=== PATIENT | male | born 1950 | race Caucasian/White ===

== ENCOUNTER 2016-11-03 10:08 | Outpatient (CLI) | payer MEDICARE, MEDICAID ==
[2016-11-03] MEDS ORDERED: XYLOCAINE TOPICAL 4% TP ONE ×2 (10:27→10:51)
[2016-11-03] MEDS ORDERED: SILVER NITRATE TP ONE ×2 (12:17→12:31)
== END 2016-11-03 10:09 | disposition home or self-care (01) ==
LOC: WOUND 10:08
PROVIDERS: ATTEND Podiatrist
DX: E11.621 Type 2 diabetes mellitus with foot ulcer (principal); L97.512 Non-pressure chronic ulcer of other part of right foot with fat layer exposed; E11.40 Type 2 diabetes mellitus with diabetic neuropathy, unspecified; E11.22 Type 2 diabetes mellitus with diabetic chronic kidney disease; I12.0 Hypertensive chronic kidney disease with stage 5 chronic kidney disease or end stage renal disease; N18.6 End stage renal disease; J44.9 Chronic obstructive pulmonary disease, unspecified; L84 Corns and callosities; I25.10 Atherosclerotic heart disease of native coronary artery without angina pectoris; H91.90 Unspecified hearing loss, unspecified ear; Z87.891 Personal history of nicotine dependence; Z79.4 Long term (current) use of insulin
CPT/HCPCS: 11042; 11055; G0463

== ENCOUNTER 2016-11-10 09:53 | Outpatient (CLI) | payer MEDICARE, MEDICAID ==
[2016-11-10] MEDS ORDERED: XYLOCAINE TOPICAL 4% TP ONE ×2 (10:12→10:18)
[2016-11-10] MEDS ORDERED: SODIUM CHLORIDE FLUSH SYRINGE 10 ML IV ONE (14:55)
== END 2016-11-10 09:54 | disposition home or self-care (01) ==
LOC: WOUND 09:53
PROVIDERS: ATTEND Podiatrist
DX: E11.621 Type 2 diabetes mellitus with foot ulcer (principal); L97.512 Non-pressure chronic ulcer of other part of right foot with fat layer exposed; E11.40 Type 2 diabetes mellitus with diabetic neuropathy, unspecified; L84 Corns and callosities; E11.22 Type 2 diabetes mellitus with diabetic chronic kidney disease; I12.0 Hypertensive chronic kidney disease with stage 5 chronic kidney disease or end stage renal disease; N18.6 End stage renal disease; E87.5 Hyperkalemia; J44.9 Chronic obstructive pulmonary disease, unspecified; I25.10 Atherosclerotic heart disease of native coronary artery without angina pectoris; Z98.62 Peripheral vascular angioplasty status

== ENCOUNTER 2016-12-09 04:38 | Emergency (ER) | payer MEDICARE, MEDICAID ==
[2016-12-09 05:00] VITALS: BP 161/83
[2016-12-09 05:35] LABS: Basophils % (Auto) 1.3 % (0.0-1.8); Eosinophils % (Auto) 2.6 % (0.0-4.3); Hematocrit 34.9 % (35.5-45.6); Hemoglobin 11.8 gm/dl (11.8-15.2); Mean Corpuscular HGB Conc 34 % (32-34); Mean Corpuscular Hemoglobin 33 pg (28-32); Mean Corpuscular Volume 98 fl (84-94); Platelet Count 164 K/mm3 (140-440); Red Blood Count 3.57 M/mm3 (3.65-5.03); Red Cell Distribution Width 16.4 % (13.2-15.2); White Blood Count 11.8 K/mm3 (4.5-11.0)
[2016-12-09 05:50] LABS: Calcium 9.6 mg/dL (8.4-10.2)
[2016-12-09 06:05] LABS: Potassium 6.4 mmol/L (3.6-5.0)
--- NOTE | 2016-12-09 09:39 | XRay Report ---
Chest 2 views: Compared to 10/25/16. History: Fever and cough. Findings: Normal cardiomediastinal silhouette. Trachea is midline. No consolidation, pneumothorax or pleural effusion. Impression: No acute cardiopulmonary findings.
== END 2016-12-09 07:00 | disposition left against medical advice (07) ==
LOC: ED 04:38
DX: R07.9 Chest pain, unspecified (principal); Z53.21 Procedure and treatment not carried out due to patient leaving prior to being seen by health care provider
CPT/HCPCS: 36415; 71020; 80048; 80061; 84484; 85025; 93005; 93010

== ENCOUNTER 2017-05-07 07:59 | Outpatient (CLI) | payer MEDICARE ==
[2017-05-07] MEDS ORDERED: XYLOCAINE TOPICAL 4% TP ONE (08:24)
[2017-05-07] MEDS ORDERED: SILVER NITRATE TP ONE ×2 (10:04→10:06)
== END 2017-05-07 08:00 | disposition home or self-care (01) ==
LOC: WOUND 07:59
PROVIDERS: ATTEND Internal Medicine
DX: E11.621 Type 2 diabetes mellitus with foot ulcer (principal); L97.512 Non-pressure chronic ulcer of other part of right foot with fat layer exposed; E11.40 Type 2 diabetes mellitus with diabetic neuropathy, unspecified; E11.22 Type 2 diabetes mellitus with diabetic chronic kidney disease; I12.0 Hypertensive chronic kidney disease with stage 5 chronic kidney disease or end stage renal disease; N18.6 End stage renal disease; J44.9 Chronic obstructive pulmonary disease, unspecified; I25.10 Atherosclerotic heart disease of native coronary artery without angina pectoris; Z87.891 Personal history of nicotine dependence

== ENCOUNTER 2017-05-07 10:43 | Outpatient (CLI) | payer MEDICARE ==
--- NOTE | 2017-05-09 11:25 | Vascular Lab Report ---
LOWER EXTREMITY ARTERIAL DUPLEX: REASON FOR EXAM: Resting ischemia. COMMENTS ON THE RIGHT: Triphasic waveforms are seen proximally. Monophasic waveforms are seen distally. Evidence of tibial artery occlusive disease is identified. Scattered plaque is seen throughout. Findings are consistent with abnormal perfusion. Findings cannot concern the presence of resting ischemia. Wound healing may be affected by the low distal velocities. COMMENTS ON THE LEFT: Biphasic waveforms are seen proximally. Biphasic waveforms are seen distally. No significant velocity gradients are identified. Scattered plaque is seen throughout. Findings are consistent with abnormal perfusion. Findings are not consistent with resting ischemia. The ability to heal the wound may be compromised. IMPRESSION: RIGHT: Significant arterial occlusive disease consistent with inability to the wound. Rest pain cannot be confirmed by the study. LEFT:Arterial occlusive disease which may hinder distal wound healing.
== END 2017-05-07 10:44 | disposition home or self-care (01) ==
LOC: VAS 10:43
PROVIDERS: ATTEND Internal Medicine
DX: I77.1 Stricture of artery (principal)
CPT/HCPCS: 93925

== ENCOUNTER 2017-05-25 08:22 | Outpatient (CLI) | payer MEDICARE ==
[2017-05-25] MEDS ORDERED: XYLOCAINE TOPICAL 4% TP ONE (08:50)
== END 2017-05-25 08:23 | disposition home or self-care (01) ==
LOC: WOUND 08:22
PROVIDERS: ATTEND Podiatrist
DX: E11.621 Type 2 diabetes mellitus with foot ulcer (principal); L97.512 Non-pressure chronic ulcer of other part of right foot with fat layer exposed; L97.521 Non-pressure chronic ulcer of other part of left foot limited to breakdown of skin; E11.40 Type 2 diabetes mellitus with diabetic neuropathy, unspecified; E11.22 Type 2 diabetes mellitus with diabetic chronic kidney disease; I12.0 Hypertensive chronic kidney disease with stage 5 chronic kidney disease or end stage renal disease; N18.6 End stage renal disease; J44.9 Chronic obstructive pulmonary disease, unspecified; I25.10 Atherosclerotic heart disease of native coronary artery without angina pectoris; Z87.891 Personal history of nicotine dependence
CPT/HCPCS: 82962; 97597

== ENCOUNTER 2017-06-01 08:02 | Outpatient (CLI) | payer MEDICARE ==
[2017-06-01] MEDS ORDERED: XYLOCAINE TOPICAL 4% TP ONE ×2 (08:31→08:39)
== END 2017-06-01 08:03 | disposition home or self-care (01) ==
LOC: WOUND 08:02
PROVIDERS: ATTEND Podiatrist
DX: E11.621 Type 2 diabetes mellitus with foot ulcer (principal); L97.512 Non-pressure chronic ulcer of other part of right foot with fat layer exposed; L97.521 Non-pressure chronic ulcer of other part of left foot limited to breakdown of skin; E11.40 Type 2 diabetes mellitus with diabetic neuropathy, unspecified; E11.22 Type 2 diabetes mellitus with diabetic chronic kidney disease; I12.0 Hypertensive chronic kidney disease with stage 5 chronic kidney disease or end stage renal disease; N18.6 End stage renal disease; J44.9 Chronic obstructive pulmonary disease, unspecified; I25.10 Atherosclerotic heart disease of native coronary artery without angina pectoris; Z87.891 Personal history of nicotine dependence

== ENCOUNTER 2017-06-08 08:09 | Outpatient (CLI) | payer MEDICARE ==
[2017-06-08] MEDS ORDERED: XYLOCAINE TOPICAL 4% TP ONE (08:29)
== END 2017-06-08 08:10 | disposition home or self-care (01) ==
LOC: WOUND 08:09
PROVIDERS: ATTEND Podiatrist
DX: E11.621 Type 2 diabetes mellitus with foot ulcer (principal); L97.512 Non-pressure chronic ulcer of other part of right foot with fat layer exposed; E11.40 Type 2 diabetes mellitus with diabetic neuropathy, unspecified; E11.22 Type 2 diabetes mellitus with diabetic chronic kidney disease; I12.0 Hypertensive chronic kidney disease with stage 5 chronic kidney disease or end stage renal disease; N18.6 End stage renal disease; J44.9 Chronic obstructive pulmonary disease, unspecified; I25.10 Atherosclerotic heart disease of native coronary artery without angina pectoris; L84 Corns and callosities; E23.2 Diabetes insipidus; Z87.891 Personal history of nicotine dependence
CPT/HCPCS: 11055; 97597

== ENCOUNTER 2017-06-29 10:44 | Outpatient (CLI) | payer MEDICARE ==
[2017-06-29] MEDS ORDERED: XYLOCAINE TOPICAL 4% TP ONE ×2 (11:32→14:34)
== END 2017-06-29 10:45 | disposition home or self-care (01) ==
LOC: WOUND 10:44
PROVIDERS: ATTEND Surgery
DX: E11.621 Type 2 diabetes mellitus with foot ulcer (principal); L97.511 Non-pressure chronic ulcer of other part of right foot limited to breakdown of skin; L84 Corns and callosities; E11.22 Type 2 diabetes mellitus with diabetic chronic kidney disease; I12.0 Hypertensive chronic kidney disease with stage 5 chronic kidney disease or end stage renal disease; N18.6 End stage renal disease; E23.2 Diabetes insipidus; J44.9 Chronic obstructive pulmonary disease, unspecified; I25.10 Atherosclerotic heart disease of native coronary artery without angina pectoris; E87.70 Fluid overload, unspecified; Z87.891 Personal history of nicotine dependence

== ENCOUNTER 2017-07-13 09:49 | Outpatient (CLI) | payer MEDICARE ==
[2017-07-13] MEDS ORDERED: XYLOCAINE TOPICAL 4% TP ONE (10:20)
[2017-07-13] MEDS ORDERED: SILVER NITRATE TP ONE ×2 (10:50→10:59)
== END 2017-07-13 09:50 | disposition home or self-care (01) ==
LOC: WOUND 09:49
PROVIDERS: ATTEND Surgery
DX: E11.621 Type 2 diabetes mellitus with foot ulcer (principal); L97.512 Non-pressure chronic ulcer of other part of right foot with fat layer exposed; E11.40 Type 2 diabetes mellitus with diabetic neuropathy, unspecified; E11.22 Type 2 diabetes mellitus with diabetic chronic kidney disease; L84 Corns and callosities; I12.0 Hypertensive chronic kidney disease with stage 5 chronic kidney disease or end stage renal disease; N18.6 End stage renal disease; J44.9 Chronic obstructive pulmonary disease, unspecified; I25.10 Atherosclerotic heart disease of native coronary artery without angina pectoris; Z87.891 Personal history of nicotine dependence

== ENCOUNTER 2017-07-20 09:01 | Outpatient (CLI) | payer MEDICARE ==
[2017-07-20] MEDS ORDERED: XYLOCAINE TOPICAL 4% TP ONE (09:31)
== END 2017-07-20 09:02 | disposition home or self-care (01) ==
LOC: WOUND 09:01
PROVIDERS: ATTEND Surgery
DX: E11.621 Type 2 diabetes mellitus with foot ulcer (principal); L97.512 Non-pressure chronic ulcer of other part of right foot with fat layer exposed; E11.40 Type 2 diabetes mellitus with diabetic neuropathy, unspecified; E11.22 Type 2 diabetes mellitus with diabetic chronic kidney disease; L84 Corns and callosities; I12.0 Hypertensive chronic kidney disease with stage 5 chronic kidney disease or end stage renal disease; N18.6 End stage renal disease; J44.9 Chronic obstructive pulmonary disease, unspecified; I25.10 Atherosclerotic heart disease of native coronary artery without angina pectoris; Z87.891 Personal history of nicotine dependence
CPT/HCPCS: 99214; G0463

== ENCOUNTER 2017-08-10 09:09 | Outpatient (CLI) | payer MEDICARE ==
[2017-08-10] MEDS ORDERED: XYLOCAINE TOPICAL 4% TP ONE ×2 (09:12→09:45)
[2017-08-10] MEDS ORDERED: AD OINTMENT TP PRN (09:53)
[2017-08-10] MEDS ORDERED: AD OINTMENT TP ONE (09:53)
== END 2017-08-10 09:10 | disposition home or self-care (01) ==
LOC: WOUND 09:09
PROVIDERS: ATTEND Surgery
DX: E11.621 Type 2 diabetes mellitus with foot ulcer (principal); L97.512 Non-pressure chronic ulcer of other part of right foot with fat layer exposed; E11.40 Type 2 diabetes mellitus with diabetic neuropathy, unspecified; E11.22 Type 2 diabetes mellitus with diabetic chronic kidney disease; L84 Corns and callosities; I12.0 Hypertensive chronic kidney disease with stage 5 chronic kidney disease or end stage renal disease; N18.6 End stage renal disease; J44.9 Chronic obstructive pulmonary disease, unspecified; I25.10 Atherosclerotic heart disease of native coronary artery without angina pectoris; Z87.891 Personal history of nicotine dependence
CPT/HCPCS: 97597; A6250

== ENCOUNTER 2017-10-04 07:47 | Outpatient (CLI) | payer MEDICARE ==
[2017-10-04] MEDS ORDERED: XYLOCAINE TOPICAL 4% TP ONE ×2 (08:06→08:24)
== END 2017-10-04 07:48 | disposition home or self-care (01) ==
LOC: WOUND 07:47
PROVIDERS: ATTEND Surgery
DX: E11.621 Type 2 diabetes mellitus with foot ulcer (principal); L97.512 Non-pressure chronic ulcer of other part of right foot with fat layer exposed; L89.892 Pressure ulcer of other site, stage 2; E11.40 Type 2 diabetes mellitus with diabetic neuropathy, unspecified; E11.22 Type 2 diabetes mellitus with diabetic chronic kidney disease; L84 Corns and callosities; I12.0 Hypertensive chronic kidney disease with stage 5 chronic kidney disease or end stage renal disease; N18.6 End stage renal disease; J44.9 Chronic obstructive pulmonary disease, unspecified; I25.10 Atherosclerotic heart disease of native coronary artery without angina pectoris; Z87.891 Personal history of nicotine dependence

== ENCOUNTER 2018-05-17 07:38 | Outpatient (CLI) | payer MEDICARE ==
--- NOTE | 2018-05-17 09:18 | XRay Report ---
CHEST 2 VIEWS INDICATION: Malignant neoplasm of prostate. COMPARISON: 12/17/2016 FINDINGS: PA and lateral chest radiographs demonstrate stable cardiomediastinal silhouette and lungs with slightly prominent perihilar markings. No pleural effusions or CHF. Right hemidiaphragm again approximately 2.5 cm higher than the left. Bilateral shoulder replacement hardwares again noted. CONCLUSION: No acute chest process or significant interval change, as described. Thank you for the opportunity to participate in this patient's care.
--- NOTE | 2018-05-17 15:32 | Nuclear Medicine Report ---
Whole body bone scan: Prostate malignancy. Following injection of radionuclide whole-body imaging at approximately 3 hours demonstrates activity in the urinary tract but decreased over expected. There is a good bone to background ratio. Two areas of focal areas of increased uptake are identified in the right foot and one in the left great toe. With these exceptions the bony activity pattern is generally unremarkable. Impressions: 1. No suspicion of metastatic disease. 2. Decreased renal activity. Correlate with renal function studies.
--- NOTE | 2018-05-17 16:47 | Cat Scan Report ---
PROCEDURE: CT scan of the abdomen and pelvis followed by contrast-enhanced CT scan of the abdomen and pelvis TECHNIQUE: Computerized axial tomography of the abdomen and pelvis was performed before and after th e IV injection of 100 mL iodinated nonionic contrast. Automated exposure control, adjustment of mA an d/or kV according to patient size, or iterative reconstruction dose optimization techniques were util ized. HISTORY: MALIGNANT NEOPLASM OF PROSTATE COMPARISONS: None . FINDINGS: Lower Lung gr: There is minimal dependent atelectasis. The coronary arteries are heavily calcifi ed. Coronary artery stents may be in place. Upper Abdomen: There is a fold visualized in the gallbladder, normal variant. Gallbladder is otherwi se unremarkable. The liver showed no focal abnormality. Low-density nodule is seen in the right adren al gland, the density suggests the presence of an adrenal adenoma. This measures 2.3 cm. Left adrenal gland is unremarkable. Pancreas showed no abnormalities. The spleen is not enlarged. Possible small hiatal hernia. Kidneys, Ureters and Urinary bladder: Renal arterial calcifications are visualized. No renal calculi are seen. There is no hydronephrosis. Small low-density nodules are seen in the renal cortex of the left kidney measuring up to 1.1 cm which appear to represent renal cortical cysts. No definite solid nodules are visualized. Frederick and urinary bladder appear diffusely thickened. Some of this may be du e to lack of distention. I suspect there is intrinsic thickening, possibly muscular hypertrophy. A di screte mass is not identified. Retroperitoneum: Atherosclerotic changes are seen in the abdominal aorta. No aneurysm is visualized. Nonspecific subcentimeter lymph nodes are seen in the retroperitoneum. No pathologically enlarged ly mph nodes are identified. Bowel: Minimal diverticulosis of descending colon without evidence of diverticulitis. No evidence of bowel obstruction ascites or free intraperitoneal gas. Normal-appearing appendix seen in the right l ower quadrant. Reproductive organs: There is mild nonspecific prostate enlargement. Other: No acute bony abnormalities identified. IMPRESSION: Low-density nodule right adrenal gland likely representing a small adrenal adenoma. Left adrenal glan d is unremarkable. Coronary arteries are calcified indicating atherosclerotic disease. Coronary artery stent may be in p lace as well. Small renal cortical cysts visualized left kidney. Renal arterial calcifications are present. No molly l calculi are identified. Kidneys are otherwise unremarkable. Frederick of the urinary bladder are thicker than expected. Some of this may be due to lack of distention . Consider cystitis or muscular hypertrophy secondary to bladder outlet obstruction. There is mild nonspecific diffuse prostate enlargement. Minimal colonic diverticulosis without evidence of diverticulitis This document is electronically signed by Andrea Metzger MD., May 17 2018 04:45:13 PM ET
== END 2018-05-17 07:39 | disposition home or self-care (01) ==
LOC: NM 07:38
PROVIDERS: ATTEND Urology
DX: K57.30 Diverticulosis of large intestine without perforation or abscess without bleeding (principal); N40.0 Benign prostatic hyperplasia without lower urinary tract symptoms; I25.10 Atherosclerotic heart disease of native coronary artery without angina pectoris; C61 Malignant neoplasm of prostate; J44.9 Chronic obstructive pulmonary disease, unspecified; I10 Essential (primary) hypertension
CPT/HCPCS: 36415; 71046; 74178; 78306; 82565; 84520; A9503; Q9967

== ENCOUNTER 2019-02-25 05:33 | Inpatient (IN) | payer MEDICARE ==
--- NOTE | 2019-02-25 06:35 | Emergency Department Report ---
ED General Adult HPI - General Chief complaint: Dyspnea/Respdistress Stated complaint: SOB BLOOD IN URINE Time Seen by Provider: 02/25/19 06:01 Source: patient Mode of arrival: Ambulatory Limitations: No Limitations - History of Present Illness Initial comments: 68-year-old male with history of COPD chronically on 2 L O2, CHF, ESRD ( dialysis schedule), prostate cancer, presents to ED with complaints of shortness of breath and hematuria. Patient went to at dialysis this morning, but dialysis nurse refused to dialyze him because he appeared to be short of breath. Patient was last dialyzed on Sunday, 3 days ago. Patient states he is always short of breath, denies any increase in his dyspnea. Denies having to increase his oxygen requirement. Patient states he is here because he has had hematuria that started 3 days ago. He reports associated mild right flank pain. Patient reports history of prostate cancer for which he has received radiation therapy. Patient states following the radiation his PSA levels did decrease, however, he is supposed to follow up with his urologist in 5 months to repeat his PSA levels again. Patient denies any fever, nausea or vomiting. Cardiology: [facility] Urology: Dr Mccallum Nephrology: Dr Maddox -: days(s) (3) Location: abdomen Radiation: flank Severity scale (0 -10): 0 Quality: sharp Consistency: intermittent Improves with: none Worsens with: none Associated Symptoms: shortness of breath. denies: chest pain, cough, fever/chills, nausea/vomiting - Related Data Home Medications Medication Instructions Recorded Confirmed Last Taken AtorvaSTATin [Lipitor] 40 mg PO QHS 10/25/16 10/25/16 10/25/16 Clopidogrel [Plavix] 75 mg PO QDAY 10/25/16 10/25/16 10/25/16 Insulin Aspart (Nf) [NovoLOG 15 units SQ AC 10/25/16 10/25/16 10/25/16 Flexpen] Insulin Glargine [Lantus VIAL] 70 unit SUB-Q QHS 10/25/16 10/25/16 10/25/16 Losartan [Cozaar] 100 mg PO QDAY 10/25/16 10/25/16 10/25/16 Metoprolol [Lopressor TAB] 25 mg PO BID 10/25/16 10/25/16 10/25/16 Omeprazole Magnesium [PriLOSEC Otc] 40 mg PO QDAY 10/25/16 10/25/16 10/25/16 Sevelamer Carbonate [Renvela] 800 mg PO TIDWM 10/25/16 10/25/16 10/25/16 Tamsulosin [Flomax] 0.4 mg PO QDAY 10/25/16 10/25/16 10/25/16 Ticagrelor [Brilinta] 90 mg PO BID 10/25/16 10/25/16 10/25/16 calcitrioL [Rocaltrol] 1 mcg PO QDAY 10/25/16 10/25/16 10/25/16 oxyCODONE /ACETAMINOPHEN [Percocet 1 tab PO Q6HR PRN 10/25/16 10/25/16 10/25/16 5/325 mg] risperiDONE [RisperDAL] 2 mg PO BID 10/25/16 10/25/16 10/25/16 Previous Rx's Medication Instructions Recorded Last Taken Type Furosemide [Lasix TAB] 80 mg PO QDAY #30 tablet 10/31/16 Unknown Rx Albuterol Sulfate [Albuterol 0.63% 0.63 mg IH Q4HR PRN #2 ml 12/17/16 Unknown Rx NEBS] Albuterol Sulfate [Proair 90 mcg IH Q4HR PRN #2 aer.pow.ba 12/17/16 Unknown Rx Respiclick] Azithromycin 250 mg PO QDAY #6 tablet 12/17/16 Unknown Rx Benzonatate [Tessalon Perles] 100 mg PO Q8HR PRN #30 capsule 12/17/16 Unknown Rx Fluticasone [Flonase] 1 spray NS QDAY #1 bottle 12/17/16 Unknown Rx Ipratropium Kayenta [Atrovent Hfa] 12.9 gm IH Q4HR #2 hfa.aer.ad 12/17/16 Unknown Rx Ipratropium [Atrovent NEB] 0.5 mg IH Q4HR #2 ml 12/17/16 Unknown Rx HYDROcodone/APAP 5-325 [[place] 1 each PO Q6HR PRN #10 tablet 06/01/18 Unknown Rx 5/325] Sulfamethoxazole/Trimethoprim 1 each PO BID 10 Days #20 tablet 06/01/18 Unknown Rx [Bactrim DS TAB] cephALEXin [Keflex] 500 mg PO Q8HR 10 Days #30 cap 06/01/18 Unknown Rx Ibuprofen [Motrin 600 MG tab] 600 mg PO Q8H PRN #20 tablet 02/13/19 Unknown Rx traMADoL [Ultram] 50 mg PO Q6HR PRN #12 tablet 02/13/19 Unknown Rx Allergies Allergy/AdvReac Type Severity Reaction Status Date / Time No Known Allergies Allergy Verified 10/25/16 20:18 ED Review of Systems ROS: Stated complaint: SOB BLOOD IN URINE Other details as noted in HPI Comment: All other systems reviewed and negative Constitutional: denies: chills, fever Respiratory: shortness of breath Cardiovascular: denies: chest pain Gastrointestinal: abdominal pain. denies: nausea, vomiting Genitourinary: hematuria ED Past Medical Hx - Past Medical History Previous Medical History?: Yes Hx Hypertension: Yes Hx Diabetes: Yes Hx Pulmonary Embolism: No Hx Liver Disease: No Hx Renal Disease: Yes (Dialysis Tues, Th, and Sat) Hx of Cancer: Yes (prostate) Hx Sickle Cell Disease: No Hx Arthritis: No Hx Asthma: No Hx COPD: Yes Hx Tuberculosis: No Hx HIV: No Additional medical history: Diabetic Retinopathy, AV fistula LUE - Surgical History Past Surgical History?: Yes Hx Coronary Stent: Yes (thrice) Hx Open Heart Surgery: No Hx Internal Defibrillator: No - Social History Smoking Status: Never Smoker Substance Use Type: None - Medications Home Medications: Home Medications Medication Instructions Recorded Confirmed Last Taken Type AtorvaSTATin [Lipitor] 40 mg PO QHS 10/25/16 10/25/16 10/25/16 History Clopidogrel [Plavix] 75 mg PO QDAY 10/25/16 10/25/16 10/25/16 History Insulin Aspart (Nf) [NovoLOG 15 units SQ AC 10/25/16 10/25/16 10/25/16 History Flexpen] Insulin Glargine [Lantus VIAL] 70 unit SUB-Q QHS 10/25/16 10/25/16 10/25/16 History Losartan [Cozaar] 100 mg PO QDAY 10/25/16 10/25/16 10/25/16 History Metoprolol [Lopressor TAB] 25 mg PO BID 10/25/16 10/25/16 10/25/16 History Omeprazole Magnesium [PriLOSEC Otc] 40 mg PO QDAY 10/25/16 10/25/16 10/25/16 History Sevelamer Carbonate [Renvela] 800 mg PO TIDWM 10/25/16 10/25/16 10/25/16 History Tamsulosin [Flomax] 0.4 mg PO QDAY 10/25/16 10/25/16 10/25/16 History Ticagrelor [Brilinta] 90 mg PO BID 10/25/16 10/25/16 10/25/16 History calcitrioL [Rocaltrol] 1 mcg PO QDAY 10/25/16 10/25/16 10/25/16 History oxyCODONE /ACETAMINOPHEN [Percocet 1 tab PO Q6HR PRN 10/25/16 10/25/16 10/25/16 History 5/325 mg] risperiDONE [RisperDAL] 2 mg PO BID 10/25/16 10/25/16 10/25/16 History Furosemide [Lasix TAB] 80 mg PO QDAY #30 tablet 10/31/16 Unknown Rx Albuterol Sulfate [Albuterol 0.63% 0.63 mg IH Q4HR PRN #2 ml 12/17/16 Unknown Rx NEBS] Albuterol Sulfate [Proair 90 mcg IH Q4HR PRN #2 aer.pow.ba 12/17/16 Unknown Rx Respiclick] Azithromycin 250 mg PO QDAY #6 tablet 12/17/16 Unknown Rx Benzonatate [Tessalon Perles] 100 mg PO Q8HR PRN #30 capsule 12/17/16 Unknown Rx Fluticasone [Flonase] 1 spray NS QDAY #1 bottle 12/17/16 Unknown Rx Ipratropium Kayenta [Atrovent Hfa] 12.9 gm IH Q4HR #2 hfa.aer.ad 12/17/16 Unknown Rx Ipratropium [Atrovent NEB] 0.5 mg IH Q4HR #2 ml 12/17/16 Unknown Rx HYDROcodone/APAP 5-325 [[place] 1 each PO Q6HR PRN #10 tablet 06/01/18 Unknown Rx 5/325] Sulfamethoxazole/Trimethoprim 1 each PO BID 10 Days #20 tablet 06/01/18 Unknown Rx [Bactrim DS TAB] cephALEXin [Keflex] 500 mg PO Q8HR 10 Days #30 cap 06/01/18 Unknown Rx Ibuprofen [Motrin 600 MG tab] 600 mg PO Q8H PRN #20 tablet 02/13/19 Unknown Rx traMADoL [Ultram] 50 mg PO Q6HR PRN #12 tablet 02/13/19 Unknown Rx ED Physical Exam - General Limitations: No Limitations General appearance: alert, in no apparent distress - Head Head exam: Present: atraumatic, normocephalic - Eye Eye exam: Present: normal appearance, PERRL, EOMI - ENT ENT exam: Present: mucous membranes moist - Neck Neck exam: Present: normal inspection - Respiratory Respiratory exam: Present: normal lung sounds bilaterally. Absent: respiratory distress - Cardiovascular Cardiovascular Exam: Present: regular rate, normal rhythm - GI/Abdominal GI/Abdominal exam: Present: soft. Absent: distended, tenderness - Extremities Exam Extremities exam: Present: normal inspection - Neurological Exam Neurological exam: Present: alert, oriented X3 - Psychiatric Psychiatric exam: Present: normal affect, normal mood - Skin Skin exam: Present: warm, dry, intact, normal color ED Course Vital Signs 02/25/19 02/25/19 02/25/19 05:49 05:52 07:01 Temperature 98.3 F Pulse Rate 74 72 73 Respiratory 12 16 20 Rate Blood Pressure 171/74 Blood Pressure 172/81 [Right] O2 Sat by Pulse 86 100 99 Oximetry 02/25/19 02/25/19 02/25/19 07:15 08:31 09:31 Temperature 98.6 F Pulse Rate 77 70 71 Respiratory 20 15 20 Rate Blood Pressure 167/78 167/78 Blood Pressure 171/81 [Right] O2 Sat by Pulse 100 99 100 Oximetry - Consultations Consultation #1: 02/25/19 09:00 Spoke w/ Dr Jovel. Will dialyze pt ED Medical Decision Making - Lab Data Result diagrams: 02/25/19 06:46 02/25/19 06:46 - EKG Data -: EKG Interpreted by Me EKG shows normal: sinus rhythm, axis, QRS complexes, ST-T waves Rate: normal - EKG Data Interpretation: no acute changes - Radiology Data Radiology results: report reviewed, image reviewed - Medical Decision Making - 68 yo M w/ SOB and hematuria - pt appears slightly dyspneic, but O2 sats and CXR normal; BNP elevated, possible pulm edema not yet evident on CXR - hematuria present on UA, WBC also increased, rocephin given to cover for possible infection; no ureteral stones present on CT - potassium 5.2, kayexalate given; Dr Jovel to dialyze - pt admitted to hospitalist for further management - Differential Diagnosis hyperkalemia, pulm edema, UTI, kidney stone Critical care attestation.: If time is entered above; I have spent that time in minutes in the direct care of this critically ill patient, excluding procedure time. ED Disposition Clinical Impression: ESRD needing dialysis, Hematuria, Hyperkalemia Disposition: OP ADMIT IP TO THIS HOSP Is pt being admited?: Yes Condition: Stable Time of Disposition: 08:56
--- NOTE | 2019-02-25 06:56 | Cat Scan Report ---
CT OF THE ABDOMEN AND PELVIS WITHOUT CONTRAST INDICATION / CLINICAL INFORMATION: Left flank pain and hematuria. History of prostate cancer. TECHNIQUE: All CT scans at this location are performed using CT dose reduction for ALARA by means of automated e xposure control. COMPARISON: 05/17/2018. FINDINGS: ABDOMEN: There are bilateral renovascular calcifications and renal calculi. There are several small s imple cyst-appearing lesions in the left kidney. I see no evidence of ureteral calculus or hydronephr osis. A 2.1 cm low-density right adrenal nodule is stable. The liver, spleen, gallbladder, bile ducts, pancreas, left adrenal gland and bowel demonstrate no sig nificant abnormality. No adenopathy is seen. The lung bases are clear. PELVIS: The distal ureters and urinary bladder are normal. The prostate gland is only slightly enlarg ed. There is no evidence of diverticulitis. A normal appendix is present. No abnormal mass or fluid c ollection is seen. I do not identify a hernia. There is mild spondylosis without acute osseous abnorm ality. IMPRESSION: 1. No acute abnormality is identified. 2. Bilateral nonobstructive nephrolithiasis. 3. 2.1 cm right adrenal adenoma. Signer Name: Jigar Wilks MD Signed: 02/25/2019 6:52 AM Workstation Name: [email or web address]
[2019-02-25 06:58] LABS: Basophils # (Auto) 0.2 K/mm3 (0.0-0.1); Eosinophils # (Auto) 0.4 K/mm3 (0.0-0.4); Eosinophils % (Auto) 4.4 % (0.0-4.3); Hematocrit 34.2 % (35.5-45.6); Hemoglobin 11.4 gm/dl (11.8-15.2); Lymphocytes # (Auto) 0.7 K/mm3 (1.2-5.4); Lymphocytes % (Auto) 7.9 % (13.4-35.0); Mean Corpuscular HGB Conc 33 % (32-34); Mean Corpuscular Volume 100 fl (84-94); Monocytes # (Auto) 0.8 K/mm3 (0.0-0.8); Monocytes % (Auto) 8.7 % (0.0-7.3); Platelet Count 167 K/mm3 (140-440); Red Blood Count 3.41 M/mm3 (3.65-5.03); Red Cell Distribution Width 15.3 % (13.2-15.2)
--- NOTE | 2019-02-25 06:58 | XRay Report ---
CHEST 1 VIEW 6:25 AM INDICATION / CLINICAL INFORMATION: Shortness of breath. COMPARISON: 02/12/2019. FINDINGS: SUPPORT DEVICES: None. HEART / MEDIASTINUM: The heart size and pulmonary vasculature are normal for technique. LUNGS / PLEURA: No significant pulmonary or pleural abnormality. No pneumothorax. ADDITIONAL FINDINGS: There are bilateral shoulder prostheses. IMPRESSION: No acute abnormality or significant change. Signer Name: Jigar Wilks MD Signed: 02/25/2019 6:53 AM Workstation Name: [email or web address]
[2019-02-25 07:08] LABS: INR 1.08 (0.87-1.13)
[2019-02-25 07:09] LABS: Partial Thromboplastin Time 33.4 Sec. (24.2-36.6)
[2019-02-25 07:21] LABS: Calcium 9.5 mg/dL (8.4-10.2)
[2019-02-25 07:50] LABS: Chol/HDL Ratio 4.17 %
[2019-02-25 08:22] LABS: Bilirubin,Urine NEG (Negative); Blood,Urine LG (Negative); Color,Urine Yellow (Yellow); Urobilinogen,Urine < 2.0 mg/dL (<2.0)
[2019-02-25 08:26] LABS: RBC,Urine > 182.0 /HPF (0.0-6.0)
[2019-02-25] MEDS ORDERED: cefTRIAXone/NS 1 GM/50 ML 1 GM/50 ML BAG IV ONE (08:34)
[2019-02-25] MEDS ORDERED: MORPHINE 2 MG/1 ML INJ IV ONE (08:34)
[2019-02-25] MEDS ORDERED: SODIUM POLYSTYRENE 15 GM/60 ML ORAL LIQD PO ONE (08:56)
[2019-02-25] MEDS ORDERED: ACETAMINOPHEN 325 MG TAB PO PRN (11:43)
[2019-02-25] MEDS ORDERED: ONDANSETRON 4 MG/2 ML INJ IV PRN (11:43)
--- NOTE | 2019-02-25 11:46 | History and Physical Report ---
History of Present Illness Date of admission: 02/25/19 08:58 Chief complaint: Blood in my urine History of present illness: 68-year-old man with history of COPD on 2 L of oxygen at home, CHF, end-stage renal disease, prostate cancer who presents to the hospital complaining of shortness of breath and hematuria. He tried to get dialysis this morning but the dialysis nurse refused because he appeared to be short of breath. The patient denied increasing oxygen requirements., And hematuria has been going on now for 3 days which is associated with right flank pain. He has a previous his tory of prostate cancer for which he has already received radiation therapy., He is following with urology as an outpatient. -He had some right flank pain previously but has now resolved He is complaining of dyspnea on exertion at baseline and orthopnea. He states that he has seen his liner replacer at [facility] and he gave him a whole lot of medications for it. Patient follows with [facility], Dr. Marin for urology, and Dr. Maddox for nephrology PAST MEDICAL HISTORY:hypertension, diabetes, end-stage renal disease on dialysis, coronary disease, COPD, chronic hypoxic respiratory failure, systolic CHF EF 35% PAST SURGICAL HISTORY: AV fistula FAMILY HISTORY: Hypertension, diabetes SOCIAL HISTORY:Denies alcohol, tobacco, drugs, admits to former tobacco and alcohol abuse, but has quit for years Medications and Allergies Allergies Allergy/AdvReac Type Severity Reaction Status Date / Time No Known Allergies Allergy Verified 10/25/16 20:18 Home Medications Medication Instructions Recorded Confirmed Last Taken Type AtorvaSTATin [Lipitor] 40 mg PO QHS 10/25/16 10/25/16 10/25/16 History Clopidogrel [Plavix] 75 mg PO QDAY 10/25/16 10/25/16 10/25/16 History Insulin Aspart (Nf) [NovoLOG 15 units SQ AC 10/25/16 10/25/16 10/25/16 History Flexpen] Insulin Glargine [Lantus VIAL] 70 unit SUB-Q QHS 10/25/16 10/25/16 10/25/16 History Losartan [Cozaar] 100 mg PO QDAY 10/25/16 10/25/16 10/25/16 History Metoprolol [Lopressor TAB] 25 mg PO BID 10/25/16 10/25/16 10/25/16 History Omeprazole Magnesium [PriLOSEC Otc] 40 mg PO QDAY 10/25/16 10/25/16 10/25/16 History Sevelamer Carbonate [Renvela] 800 mg PO TIDWM 10/25/16 10/25/16 10/25/16 History Tamsulosin [Flomax] 0.4 mg PO QDAY 10/25/16 10/25/16 10/25/16 History Ticagrelor [Brilinta] 90 mg PO BID 10/25/16 10/25/16 10/25/16 History calcitrioL [Rocaltrol] 1 mcg PO QDAY 10/25/16 10/25/16 10/25/16 History oxyCODONE /ACETAMINOPHEN [Percocet 1 tab PO Q6HR PRN 10/25/16 10/25/16 10/25/16 History 5/325 mg] risperiDONE [RisperDAL] 2 mg PO BID 10/25/16 10/25/16 10/25/16 History Furosemide [Lasix TAB] 80 mg PO QDAY #30 tablet 10/31/16 Unknown Rx Albuterol Sulfate [Albuterol 0.63% 0.63 mg IH Q4HR PRN #2 ml 12/17/16 Unknown Rx NEBS] Albuterol Sulfate [Proair 90 mcg IH Q4HR PRN #2 aer.pow.ba 12/17/16 Unknown Rx Respiclick] Azithromycin 250 mg PO QDAY #6 tablet 12/17/16 Unknown Rx Benzonatate [Tessalon Perles] 100 mg PO Q8HR PRN #30 capsule 12/17/16 Unknown Rx Fluticasone [Flonase] 1 spray NS QDAY #1 bottle 12/17/16 Unknown Rx Ipratropium [place] [Atrovent Hfa] 12.9 gm IH Q4HR #2 hfa.aer.ad 12/17/16 Unknown Rx Ipratropium [Atrovent NEB] 0.5 mg IH Q4HR #2 ml 12/17/16 Unknown Rx HYDROcodone/APAP 5-325 [[place] 1 each PO Q6HR PRN #10 tablet 06/01/18 Unknown Rx 5/325] Sulfamethoxazole/Trimethoprim 1 each PO BID 10 Days #20 tablet 06/01/18 Unknown Rx [Bactrim DS TAB] cephALEXin [Keflex] 500 mg PO Q8HR 10 Days #30 cap 06/01/18 Unknown Rx Ibuprofen [Motrin 600 MG tab] 600 mg PO Q8H PRN #20 tablet 02/13/19 Unknown Rx traMADoL [Ultram] 50 mg PO Q6HR PRN #12 tablet 02/13/19 Unknown Rx Active Meds: Active Medications Acetaminophen (Tylenol) 650 mg PO Q4H PRN PRN Reason: Pain MILD(1-3)/Fever >100.5/ZELAYA Ondansetron HCl (Zofran) 4 mg IV Q8H PRN PRN Reason: Nausea And Vomiting Sodium Chloride (Sodium Chloride Flush Syringe 10 Ml) 10 ml IV BID EVANGELINA Sodium Chloride (Sodium Chloride Flush Syringe 10 Ml) 10 ml IV PRN PRN PRN Reason: LINE FLUSH Review of Systems All systems: negative (As stated in HPI) Exam - Constitutional Vitals: Temp Pulse Resp BP Pulse Ox 98.6 F 71 20 167/78 100 02/25/19 07:15 02/25/19 09:31 02/25/19 09:31 02/25/19 09:31 02/25/19 09:31 General appearance: Present: mild distress, well-nourished - EENT Eyes: Present: PERRL ENT: hearing intact, clear oral mucosa - Neck Neck: Present: supple, normal ROM - Respiratory Respiratory effort: normal Respiratory: bilateral: rales - Cardiovascular Heart Sounds: Present: S1 & S2. Absent: rub, click - Extremities Extremities: pulses symmetrical, No edema Peripheral Pulses: within normal limits - Abdominal General gastrointestinal: Present: soft, non-tender, non-distended, normal bowel sounds Male genitourinary: Present: normal - Integumentary Integumentary: Present: clear, warm, dry - Musculoskeletal Musculoskeletal: gait normal, strength equal bilaterally - Psychiatric Psychiatric: appropriate mood/affect, intact judgment & insight - Neurologic Neurologic: CNII-XII intact, moves all extremities Results - Labs CBC & Chem 7: 02/25/19 06:46 02/25/19 06:46 Labs: Laboratory Last Values WBC 8.6 K/mm3 (4.5-11.0) 02/25/19 06:46 RBC 3.41 M/mm3 (3.65-5.03) L 02/25/19 06:46 Hgb 11.4 gm/dl (11.8-15.2) L 02/25/19 06:46 Hct 34.2 % (35.5-45.6) L 02/25/19 06:46 MCV 100 fl (84-94) H 02/25/19 06:46 MCH 34 pg (28-32) H 02/25/19 06:46 MCHC 33 % (32-34) 02/25/19 06:46 RDW 15.3 % (13.2-15.2) H 02/25/19 06:46 Plt Count 167 K/mm3 (140-440) 02/25/19 06:46 Lymph % (Auto) 7.9 % (13.4-35.0) L 02/25/19 06:46 [place] % (Auto) 8.7 % (0.0-7.3) H 02/25/19 06:46 Eos % (Auto) 4.4 % (0.0-4.3) H 02/25/19 06:46 Baso % (Auto) 2.0 % (0.0-1.8) H 02/25/19 06:46 Lymph # 0.7 K/mm3 (1.2-5.4) L 02/25/19 06:46 [place] # 0.8 K/mm3 (0.0-0.8) 02/25/19 06:46 Eos # 0.4 K/mm3 (0.0-0.4) 02/25/19 06:46 Baso # 0.2 K/mm3 (0.0-0.1) H 02/25/19 06:46 Seg Neutrophils % 77.0 % (40.0-70.0) H 02/25/19 06:46 Seg Neutrophils # 6.6 K/mm3 (1.8-7.7) 02/25/19 06:46 PT 14.1 Sec. (12.2-14.9) 02/25/19 06:46 INR 1.08 (0.87-1.13) 02/25/19 06:46 APTT 33.4 Sec. (24.2-36.6) 02/25/19 06:46 Sodium 137 mmol/L (137-145) 02/25/19 06:46 Potassium 5.2 mmol/L (3.6-5.0) H 02/25/19 06:46 Chloride 93.0 mmol/L (98-107) L 02/25/19 06:46 Carbon Dioxide 21 mmol/L (22-30) L 02/25/19 06:46 Anion Gap 28 mmol/L 02/25/19 06:46 BUN 67 mg/dL (9-20) H 02/25/19 06:46 Creatinine 9.7 mg/dL (0.8-1.5) H 02/25/19 06:46 Estimated GFR 5 ml/min 02/25/19 06:46 BUN/Creatinine Ratio 7 % 02/25/19 06:46 Glucose 248 mg/dL (75-100) H 02/25/19 06:46 Calcium 9.5 mg/dL (8.4-10.2) 02/25/19 06:46 Troponin T 0.079 ng/mL (0.00-0.029) H 02/25/19 06:46 NT-Pro-B Natriuret Pep 12728 pg/mL (0-900) H 02/25/19 06:46 Triglycerides 172 mg/dL (2-149) H 02/25/19 06:46 Cholesterol 171 mg/dL (50-199) 02/25/19 06:46 LDL Cholesterol Direct 108 mg/dL (50-130) 02/25/19 06:46 HDL Cholesterol 41 mg/dL (40-59) 02/25/19 06:46 Cholesterol/HDL Ratio 4.17 % 02/25/19 06:46 Urine Color Yellow (Yellow) 02/25/19 Unknown Urine Turbidity Slightly-cloudy (Clear) 02/25/19 Unknown Urine pH 8.0 (5.0-7.0) H 02/25/19 Unknown Ur Specific [place] 1.012 (1.003-1.030) 02/25/19 Unknown Urine Protein 100 mg/dl mg/dL (Negative) 02/25/19 Unknown Urine Glucose (UA) >=500 mg/dL (Negative) 02/25/19 Unknown Urine Ketones Neg mg/dL (Negative) 02/25/19 Unknown Urine Blood Lg (Negative) 02/25/19 Unknown Urine Nitrite Neg (Negative) 02/25/19 Unknown Urine Bilirubin Neg (Negative) 02/25/19 Unknown Urine Urobilinogen < 2.0 mg/dL (<2.0) 02/25/19 Unknown Ur Leukocyte Esterase Neg (Negative) 02/25/19 Unknown Urine WBC (Auto) 27.0 /HPF (0.0-6.0) H 02/25/19 Unknown Urine RBC (Auto) > 182.0 /HPF (0.0-6.0) 02/25/19 Unknown U Epithel Cells (Auto) 3.0 /HPF (0-13.0) 02/25/19 Unknown Assessment and Plan Assessment and plan: 68-year-old man who presents with shortness of breath and hematuria Chest x-ray; no acute findings CT abdomen and pelvis; no acute abnormalities, however there is bilateral nonobstructive nephrolithiasis, and a 2.1 cm right adrenal adenoma. Hematuria Urology consult, for possible cystoscopy in a.m. Patient has history of prostate cancer status post radiation, he was due for follow-up in 5 months. Shortness of breath Given worsening dyspnea on exertion and orthopnea. Cardiology consulted, CHF, acute on chronic systolic, EF 35% per patient Makes very little urine, for dialysis today End-stage renal disease/hyperkalemia Dialysis per nephrology Chronic hypoxic respiratory failure Using his baseline 2 L, will continue that DVT prophylaxis SCDs in light of hematuria Preventative health counseling performed for 17 minutes
[2019-02-25] MEDS ORDERED: SODIUM CHLORIDE 0.9% 100 ML IV PRN (13:07)
[2019-02-25 13:38] LABS: Hepatitis C Virus Antibody Non-Reactive (NonReactive)
[2019-02-25 14:00] LABS: Hepatitis B Surface Antigen Non-Reactive (Negative)
--- NOTE | 2019-02-25 15:11 | Consultation ---
History of Present Illness - Reason for Consult Consult date: 02/25/19 - History of Present Illness SEEN BY DR. SEPULVEDA IN PAST 68-year-old man with history of COPD on 2 L of oxygen at home, CHF, end-stage renal disease, prostate cancer who presents to the hospital complaining of shortness of breath and hematuria. He tried to get dialysis this morning but the dialysis nurse refused because he appeared to be short of breath. The patient denied increasing oxygen requirements., And hematuria has been going on now for 3 days which is associated with right flank pain. He has a previous history of prostate cancer for which he has already received radiation therapy (DR. DENISHA VARNER). LAST PSA 0.63 ON 01-01-19 ABD SOFT CTAP---BILAT SMALL KIDNEY STONES-----NO HYDRONEPHROSIS (NOTA CAUSE OF PAIN) A/P GROSS HEMATURIA (MAKES SMALL AMOUNT OF URINE) SOB CONSIDER CYSTO IF STABLE TOMORROW OF LATER Medications and Allergies Allergies Allergy/AdvReac Type Severity Reaction Status Date / Time No Known Allergies Allergy Verified 10/25/16 20:18 Home Medications Medication Instructions Recorded Confirmed Last Taken Type AtorvaSTATin [Lipitor] 40 mg PO QHS 10/25/16 10/25/16 10/25/16 History Clopidogrel [Plavix] 75 mg PO QDAY 10/25/16 10/25/16 10/25/16 History Insulin Aspart (Nf) [NovoLOG 15 units SQ AC 10/25/16 10/25/16 10/25/16 History Flexpen] Insulin Glargine [Lantus VIAL] 70 unit SUB-Q QHS 10/25/16 10/25/16 10/25/16 History Losartan [Cozaar] 100 mg PO QDAY 10/25/16 10/25/16 10/25/16 History Metoprolol [Lopressor TAB] 25 mg PO BID 10/25/16 10/25/16 10/25/16 History Omeprazole Magnesium [PriLOSEC Otc] 40 mg PO QDAY 10/25/16 10/25/16 10/25/16 History Sevelamer Carbonate [Renvela] 800 mg PO TIDWM 10/25/16 10/25/16 10/25/16 History Tamsulosin [Flomax] 0.4 mg PO QDAY 10/25/16 10/25/16 10/25/16 History Ticagrelor [Brilinta] 90 mg PO BID 10/25/16 10/25/16 10/25/16 History calcitrioL [Rocaltrol] 1 mcg PO QDAY 10/25/16 10/25/16 10/25/16 History oxyCODONE /ACETAMINOPHEN [Percocet 1 tab PO Q6HR PRN 10/25/16 10/25/16 10/25/16 History 5/325 mg] risperiDONE [RisperDAL] 2 mg PO BID 10/25/16 10/25/16 10/25/16 History Furosemide [Lasix TAB] 80 mg PO QDAY #30 tablet 10/31/16 Unknown Rx Albuterol Sulfate [Albuterol 0.63% 0.63 mg IH Q4HR PRN #2 ml 12/17/16 Unknown Rx NEBS] Albuterol Sulfate [Proair 90 mcg IH Q4HR PRN #2 aer.pow.ba 12/17/16 Unknown Rx Respiclick] Azithromycin 250 mg PO QDAY #6 tablet 12/17/16 Unknown Rx Benzonatate [Tessalon Perles] 100 mg PO Q8HR PRN #30 capsule 12/17/16 Unknown Rx Fluticasone [Flonase] 1 spray NS QDAY #1 bottle 12/17/16 Unknown Rx Ipratropium [place] [Atrovent Hfa] 12.9 gm IH Q4HR #2 hfa.aer.ad 12/17/16 Unknown Rx Ipratropium [Atrovent NEB] 0.5 mg IH Q4HR #2 ml 12/17/16 Unknown Rx HYDROcodone/APAP 5-325 [[place] 1 each PO Q6HR PRN #10 tablet 06/01/18 Unknown Rx 5/325] Sulfamethoxazole/Trimethoprim 1 each PO BID 10 Days #20 tablet 06/01/18 Unknown Rx [Bactrim DS TAB] cephALEXin [Keflex] 500 mg PO Q8HR 10 Days #30 cap 06/01/18 Unknown Rx Ibuprofen [Motrin 600 MG tab] 600 mg PO Q8H PRN #20 tablet 02/13/19 Unknown Rx traMADoL [Ultram] 50 mg PO Q6HR PRN #12 tablet 02/13/19 Unknown Rx Active Meds: Active Medications Acetaminophen (Tylenol) 650 mg PO Q4H PRN PRN Reason: Pain MILD(1-3)/Fever >100.5/ZELAYA Sodium Chloride (Nacl 0.9%) 100 mls @ 999 mls/hr IV LESIA PRN PRN Reason: Hypotension Ondansetron HCl (Zofran) 4 mg IV Q8H PRN PRN Reason: Nausea And Vomiting Sodium Chloride (Sodium Chloride Flush Syringe 10 Ml) 10 ml IV BID EVANGELINA Sodium Chloride (Sodium Chloride Flush Syringe 10 Ml) 10 ml IV PRN PRN PRN Reason: LINE FLUSH Exam - Constitutional Vitals: Temp Pulse Resp BP Pulse Ox 98.6 F 71 20 167/78 100 02/25/19 07:15 02/25/19 09:31 02/25/19 09:31 02/25/19 09:31 02/25/19 09:31 Results - Labs CBC & Chem 7: 02/25/19 06:46 02/25/19 06:46 Labs: Abnormal lab results 02/25/19 02/25/19 02/25/19 Range/Units 06:46 06:46 Unknown RBC 3.41 L (3.65-5.03) M/mm3 Hgb 11.4 L (11.8-15.2) gm/dl Hct 34.2 L (35.5-45.6) % MCV 100 H (84-94) fl MCH 34 H (28-32) pg RDW 15.3 H (13.2-15.2) % Lymph % (Auto) 7.9 L (13.4-35.0) % [place] % (Auto) 8.7 H (0.0-7.3) % Eos % (Auto) 4.4 H (0.0-4.3) % Baso % (Auto) 2.0 H (0.0-1.8) % Lymph # 0.7 L (1.2-5.4) K/mm3 Baso # 0.2 H (0.0-0.1) K/mm3 Seg Neutrophils % 77.0 H (40.0-70.0) % Potassium 5.2 H (3.6-5.0) mmol/L Chloride 93.0 L (98-107) mmol/L Carbon Dioxide 21 L (22-30) mmol/L BUN 67 H (9-20) mg/dL Creatinine 9.7 H (0.8-1.5) mg/dL Glucose 248 H (75-100) mg/dL Troponin T 0.079 H (0.00-0.029) ng/mL NT-Pro-B Natriuret Pep 16645 H (0-900) pg/mL Triglycerides 172 H (2-149) mg/dL Urine pH 8.0 H (5.0-7.0) Urine WBC (Auto) 27.0 H (0.0-6.0) /HPF
[2019-02-25] MEDS ORDERED: oxyCODONE /ACETAMINOPHEN 5-325MG TAB PO PRN (16:28)
--- NOTE | 2019-02-25 17:02 | Consultation ---
History of Present Illness - Reason for Consult Consult date: 02/25/19 end stage renal disease - History of Present Illness This is a 68 year old man with ESRD who presents with hematuria and shortness of breath. He usually dialyzes at [facility], but was too short of breath to be dialyzed. No recent other issues with HD; no cramping, no dizziness, no chest pain with HD. At time of consult, feels that shortness of breath has improved. Does note hematuria and abdominal/flank pain. Past History Past Medical History: ESRD Past Surgical History: No surgical history Social history: no significant social history Family history: no significant family history Medications and Allergies Allergies Allergy/AdvReac Type Severity Reaction Status Date / Time No Known Allergies Allergy Verified 10/25/16 20:18 Home Medications Medication Instructions Recorded Confirmed Last Taken Type AtorvaSTATin [Lipitor] 40 mg PO QHS 10/25/16 10/25/16 10/25/16 History Clopidogrel [Plavix] 75 mg PO QDAY 10/25/16 10/25/16 10/25/16 History Insulin Aspart (Nf) [NovoLOG 15 units SQ AC 10/25/16 10/25/16 10/25/16 History Flexpen] Insulin Glargine [Lantus VIAL] 70 unit SUB-Q QHS 10/25/16 10/25/16 10/25/16 History Losartan [Cozaar] 100 mg PO QDAY 10/25/16 10/25/16 10/25/16 History Metoprolol [Lopressor TAB] 25 mg PO BID 10/25/16 10/25/16 10/25/16 History Omeprazole Magnesium [PriLOSEC Otc] 40 mg PO QDAY 10/25/16 10/25/16 10/25/16 History Sevelamer Carbonate [Renvela] 800 mg PO TIDWM 10/25/16 10/25/16 10/25/16 History Tamsulosin [Flomax] 0.4 mg PO QDAY 10/25/16 10/25/16 10/25/16 History Ticagrelor [Brilinta] 90 mg PO BID 10/25/16 10/25/16 10/25/16 History calcitrioL [Rocaltrol] 1 mcg PO QDAY 10/25/16 10/25/16 10/25/16 History oxyCODONE /ACETAMINOPHEN [Percocet 1 tab PO Q6HR PRN 10/25/16 10/25/16 10/25/16 History 5/325 mg] risperiDONE [RisperDAL] 2 mg PO BID 10/25/16 10/25/16 10/25/16 History Furosemide [Lasix TAB] 80 mg PO QDAY #30 tablet 10/31/16 Unknown Rx Albuterol Sulfate [Albuterol 0.63% 0.63 mg IH Q4HR PRN #2 ml 12/17/16 Unknown Rx NEBS] Albuterol Sulfate [Proair 90 mcg IH Q4HR PRN #2 aer.pow.ba 12/17/16 Unknown Rx Respiclick] Azithromycin 250 mg PO QDAY #6 tablet 12/17/16 Unknown Rx Benzonatate [Tessalon Perles] 100 mg PO Q8HR PRN #30 capsule 12/17/16 Unknown Rx Fluticasone [Flonase] 1 spray NS QDAY #1 bottle 12/17/16 Unknown Rx Ipratropium [place] [Atrovent Hfa] 12.9 gm IH Q4HR #2 hfa.aer.ad 12/17/16 Unknown Rx Ipratropium [Atrovent NEB] 0.5 mg IH Q4HR #2 ml 12/17/16 Unknown Rx HYDROcodone/APAP 5-325 [[place] 1 each PO Q6HR PRN #10 tablet 06/01/18 Unknown Rx 5/325] Sulfamethoxazole/Trimethoprim 1 each PO BID 10 Days #20 tablet 06/01/18 Unknown Rx [Bactrim DS TAB] cephALEXin [Keflex] 500 mg PO Q8HR 10 Days #30 cap 06/01/18 Unknown Rx Ibuprofen [Motrin 600 MG tab] 600 mg PO Q8H PRN #20 tablet 02/13/19 Unknown Rx traMADoL [Ultram] 50 mg PO Q6HR PRN #12 tablet 02/13/19 Unknown Rx Active Meds: Active Medications Acetaminophen (Tylenol) 650 mg PO Q4H PRN PRN Reason: Pain MILD(1-3)/Fever >100.5/ZELAYA Sodium Chloride (Nacl 0.9%) 100 mls @ 999 mls/hr IV LESIA PRN PRN Reason: Hypotension Ondansetron HCl (Zofran) 4 mg IV Q8H PRN PRN Reason: Nausea And Vomiting Oxycodone/Acetaminophen (Percocet 5/325) 1 tab PO Q6H PRN PRN Reason: Pain, Moderate (4-6) Sodium Chloride (Sodium Chloride Flush Syringe 10 Ml) 10 ml IV BID EVANGELINA Sodium Chloride (Sodium Chloride Flush Syringe 10 Ml) 10 ml IV PRN PRN PRN Reason: LINE FLUSH Review of Systems All systems: negative (as per HPI) Exam - Vital Signs Vital signs: Vital Signs Pulse Resp Pulse Ox 74 12 86 02/25/19 05:49 02/25/19 05:49 02/25/19 05:49 - General Appearance General appearance: well-developed, well-nourished, appears stated age EENT: ATNC, PERRL, mucous membranes moist Neck: Present: neck supple, trachea midline Respiratory: Clear to Ascultation, Decreased Breath Sounds Heart: normal heart rate, S1S2 Gastrointestinal: Present: normal, normoactive bowel sounds. Absent: tenderness Integumentary: no rash Neurologic: no focal deficit, no asterixis, CN 3-12 intact Psychiatric: mood/affect appropriate Results - Lab Results 02/25/19 06:46 02/25/19 06:46 Most recent lab results Calcium 9.5 mg/dL (8.4-10.2) 02/25/19 06:46 Assessment and Plan This is a 68 year old man with ESRD who presents with hematuria, shortness of breath # ESRD: HD today for hyperkalemia and volume; continue HD // or prn based on labs/volume - daily labs - renal diet - avoid nephrotoxins - renally dose meds # Anemia: hemoglobin at goal for ESRD, no CATHIE indicated # HTN/Volume: BP high, UF removal with HD as tolerated # Hematuria: noted to have stones; consider [facility] as outpatient. Appreciate urology. # Secondary Hyperparathyroidism: continue home binders if able
[2019-02-25] MEDS ORDERED: SODIUM CHLORIDE*PRIMING MACHINE ONLY FOR DIALYSIS MC ONE (20:32)
[2019-02-26 05:26] LABS: Basophils # (Auto) 0.1 K/mm3 (0.0-0.1); Basophils % (Auto) 1.4 % (0.0-1.8); Eosinophils # (Auto) 0.3 K/mm3 (0.0-0.4); Hematocrit 35.3 % (35.5-45.6); Hemoglobin 11.9 gm/dl (11.8-15.2); Lymphocytes # (Auto) 0.5 K/mm3 (1.2-5.4); Lymphocytes % (Auto) 7.7 % (13.4-35.0); Mean Corpuscular HGB Conc 34 % (32-34); Mean Corpuscular Volume 101 fl (84-94); Monocytes # (Auto) 0.9 K/mm3 (0.0-0.8); Monocytes % (Auto) 12.3 % (0.0-7.3); Platelet Count 151 K/mm3 (140-440); Red Blood Count 3.52 M/mm3 (3.65-5.03)
[2019-02-26 05:38] LABS: Calcium 9.5 mg/dL (8.4-10.2)
--- NOTE | 2019-02-26 08:54 | Consultation ---
<MARIANGEL MURPHY - Last Filed: 02/26/19 11:37> History of Present Illness Consult date: 02/26/19 Consult reason: congestive heart failure, shortness of breath History of present illness: 68-year old male with multiple medical problems. He has a history of coronary artery disease and ischemic cardiomyopathy. A follow up echocardiogram done a month ago documents persistent left ventricular systolic dysfunction, ejection fraction 35%. The patient was previously evaluated for primary prevention ICD implant but he declined. Co-morbidities includes ESRD on hemodialysis, prostate cancer status post radiation, hypertension and diabetes. He presents to the hospital with complaints of right flank pain and hematuria. H&H is stable. Abdominal CT scan reports bilateral nonobstructive nephrolithiasis. Urology consultation and workup is in progress. In addition, there was complaint of shortness of breath thus this cardiac consultation. Patient was dialyzed on yesterday and reports his breathing has since improved. He denies chest pain and there is no lower extremity edema. An ECG is sinus rhythm with nonspecific [place] abnormalities. Past History Past Medical History: ESRD Social history: no significant social history Family history: no significant family history Medications and Allergies Allergies Allergy/AdvReac Type Severity Reaction Status Date / Time No Known Allergies Allergy Verified 10/25/16 20:18 Home Medications Medication Instructions Recorded Confirmed Last Taken Type traMADoL [Ultram 50 MG tab] 50 mg PO Q6HR PRN #12 tablet 02/13/19 02/26/19 02/24/19 21:00 Rx Insulin Aspart (Niacinamide) 0 unit SQ AC #1 vial 02/27/19 Unknown Rx [Fiasp 100 Unit/ml Vial] oxyCODONE /ACETAMINOPHEN [Percocet 1 tab PO Q6HR PRN #14 02/27/19 Unknown Rx 5/325 mg] Active Meds: Active Medications Acetaminophen (Tylenol) 650 mg PO Q4H PRN PRN Reason: Pain MILD(1-3)/Fever >100.5/ZELAYA Sodium Chloride (Nacl 0.9%) 100 mls @ 999 mls/hr IV LESIA PRN PRN Reason: Hypotension Ondansetron HCl (Zofran) 4 mg IV Q8H PRN PRN Reason: Nausea And Vomiting Oxycodone/Acetaminophen (Percocet 5/325) 1 tab PO Q6H PRN PRN Reason: Pain, Moderate (4-6) Sodium Chloride (Sodium Chloride Flush Syringe 10 Ml) 10 ml IV BID EVANGELINA Sodium Chloride (Sodium Chloride Flush Syringe 10 Ml) 10 ml IV PRN PRN PRN Reason: LINE FLUSH Physical Examination Vital Signs Pulse Resp Pulse Ox 74 12 86 02/25/19 05:49 02/25/19 05:49 02/25/19 05:49 General appearance: no acute distress HEENT: Positive: PERRL Neck: Positive: trachea midline Cardiac: Positive: Reg Rate and Rhythm Lungs: Positive: Decreased Breath Sounds Neuro: Positive: Grossly Intact Extremities: Absent: edema Results 02/26/19 05:01 02/26/19 05:01 CBC 02/26/19 Range/Units 05:01 WBC 7.0 (4.5-11.0) K/mm3 RBC 3.52 L (3.65-5.03) M/mm3 Hgb 11.9 (11.8-15.2) gm/dl Hct 35.3 L (35.5-45.6) % Plt Count 151 (140-440) K/mm3 Lymph # 0.5 L (1.2-5.4) K/mm3 [place] # 0.9 H (0.0-0.8) K/mm3 Eos # 0.3 (0.0-0.4) K/mm3 Baso # 0.1 (0.0-0.1) K/mm3 Comprehensive Metabolic Panel 02/26/19 Range/Units 05:01 Sodium 141 (137-145) mmol/L Potassium 4.9 (3.6-5.0) mmol/L Chloride 95.9 L (98-107) mmol/L Carbon Dioxide 26 (22-30) mmol/L BUN 34 H (9-20) mg/dL Creatinine 6.4 H (0.8-1.5) mg/dL Glucose 221 H (75-100) mg/dL Calcium 9.5 (8.4-10.2) mg/dL Assessment and Plan Volume overload Flank pain, right abdominal CT scan: bilateral nonobstructive nephrolithiasis Hx of Ischemic CMP previously decline ICD implant for primary prevention Hx of CAD ESRD on dialysis Hypertension Hx of prostate cancer s/p radiation therapy Recommendations: We will repeat an echocardiogram for LVEF reassessment. Dialysis for fluid removal. Medical therapy for ischemic cardiomyopathy and coronary artery disease. Patient is moderate perioperative cardiac risk. Okay to proceed with cystoscopy. <MICHAEL GARCIA - Last Filed: 02/27/19 11:11> Medications and Allergies Active Meds: Active Medications Acetaminophen (Tylenol) 650 mg PO Q4H PRN PRN Reason: Pain MILD(1-3)/Fever >100.5/ZELAYA Dextrose (D50w (25gm) Syringe) 50 ml IV Q30MIN PRN; Protocol PRN Reason: Hypoglycemia Sodium Chloride (Nacl 0.9%) 100 mls @ 999 mls/hr IV LESIA PRN PRN Reason: Hypotension Sodium Chloride (Nacl 0.9% 1000 Ml) 1,000 mls @ 42 mls/hr IV DIRECT [facility] Last Admin: 02/27/19 02:05 Dose: 42 mls/hr Documented by: Insulin Human Lispro (Humalog) 0 unit SUB-Q ACHS [facility]; Protocol Last Admin: 02/27/19 08:30 Dose: 1 unit Documented by: Ondansetron HCl (Zofran) 4 mg IV Q8H PRN PRN Reason: Nausea And Vomiting Oxycodone/Acetaminophen (Percocet 5/325) 1 tab PO Q4H PRN PRN Reason: Pain, Moderate (4-6) Sodium Chloride (Sodium Chloride Flush Syringe 10 Ml) 10 ml IV BID [facility] Last Admin: 02/26/19 21:14 Dose: 10 ml Documented by: Sodium Chloride (Sodium Chloride Flush Syringe 10 Ml) 10 ml IV PRN PRN PRN Reason: LINE FLUSH Physical Examination Vital Signs Pulse Resp Pulse Ox 74 12 86 02/25/19 05:49 02/25/19 05:49 02/25/19 05:49 Results 02/26/19 05:01 02/26/19 05:01 Assessment and Plan I've seen and evaluated the patient agree with the assessment and plan. The patient is presenting with a right sided flank pain, ischemic cardiomyopathy and history of coronary artery disease. The patient is also on dialysis due to end- stage renal disease. At this time recommend continue goal-directed medical therapy. Echocardiogram is pending. Dialysis for volume removal. Patient is plan for cystoscopy. Patient is a moderate perioperative cardiac risk for the procedure.
[2019-02-26] MEDS ORDERED: DEXTROSE 50% IN WATER (25GM) 50 ML SYRINGE IV PRN (13:00)
--- NOTE | 2019-02-26 14:00 | Progress Note ---
Assessment and Plan Assessment and plan: 68-year-old man who presents with shortness of breath and hematuria Chest x-ray; no acute findings CT abdomen and pelvis; no acute abnormalities, however there is bilateral nonobstructive nephrolithiasis, and a 2.1 cm right adrenal adenoma. Hematuria Urology consult, for possible cystoscopy today Patient has history of prostate cancer status post radiation, he is due for follow-up in 5 months. Shortness of breath/pulmonary edema Given worsening dyspnea on exertion and orthopnea. Cardiology consultappreciated CHF, acute on chronic systolic, EF 35% per patient Status post dialysis, oliguric at baseline End-stage renal disease/hyperkalemia Dialysis per nephrology Chronic hypoxic respiratory failure Using his baseline 2 L, will continue that DVT prophylaxis SCDs in light of hematuria Preventative health counseling performed for 17 minutes History Interval history: Continues to have hematuria. Denies abdominal pain presently Review of systems Constitutional: No fevers, no malaise, no joint pains CVS: No chest pain, no orthopnea, no pedal edema GI: No abdominal pain, no diarrhea, no vomiting, no constipation Respiratory: , no wheezing, no coughing Hospitalist Physical - Physical exam Narrative exam: General.: Appears well, no distress, nontoxic HEENT: Moist mucous membranes, extraocular muscles intact, no lymphadenopathy Neck: supple Cardiac: S1-S2 heard Lungs: clear to auscultation bilaterally Abdomen: soft , nontender, nondistended, bowel sounds positive Extremities: no edema clubbing or cyanosis Skin: no rash or lesions Neurologic: no gross focal deficits Psych: calm, and cooperative - Constitutional Vitals: Temp Pulse Resp BP Pulse Ox 97.8 F 72 20 154/84 93 02/26/19 13:06 02/26/19 13:06 02/26/19 13:06 02/26/19 13:06 02/26/19 13:06 General appearance: Present: no acute distress Results - Labs CBC & Chem 7: 02/26/19 05:01 02/26/19 05:01 Labs: Laboratory Last Values WBC 7.0 K/mm3 (4.5-11.0) 02/26/19 05:01 RBC 3.52 M/mm3 (3.65-5.03) L 02/26/19 05:01 Hgb 11.9 gm/dl (11.8-15.2) 02/26/19 05:01 Hct 35.3 % (35.5-45.6) L 02/26/19 05:01 MCV 101 fl (84-94) H 02/26/19 05:01 MCH 34 pg (28-32) H 02/26/19 05:01 MCHC 34 % (32-34) 02/26/19 05:01 RDW 15.0 % (13.2-15.2) 02/26/19 05:01 Plt Count 151 K/mm3 (140-440) 02/26/19 05:01 Lymph % (Auto) 7.7 % (13.4-35.0) L 02/26/19 05:01 Kimble % (Auto) 12.3 % (0.0-7.3) H 02/26/19 05:01 Eos % (Auto) 5.0 % (0.0-4.3) H 02/26/19 05:01 Baso % (Auto) 1.4 % (0.0-1.8) 02/26/19 05:01 Lymph # 0.5 K/mm3 (1.2-5.4) L 02/26/19 05:01 Kimble # 0.9 K/mm3 (0.0-0.8) H 02/26/19 05:01 Eos # 0.3 K/mm3 (0.0-0.4) 02/26/19 05:01 Baso # 0.1 K/mm3 (0.0-0.1) 02/26/19 05:01 Seg Neutrophils % 73.6 % (40.0-70.0) H 02/26/19 05:01 Seg Neutrophils # 5.1 K/mm3 (1.8-7.7) 02/26/19 05:01 PT 14.1 Sec. (12.2-14.9) 02/25/19 06:46 INR 1.08 (0.87-1.13) 02/25/19 06:46 APTT 33.4 Sec. (24.2-36.6) 02/25/19 06:46 Sodium 141 mmol/L (137-145) 02/26/19 05:01 Potassium 4.9 mmol/L (3.6-5.0) 02/26/19 05:01 Chloride 95.9 mmol/L (98-107) L 02/26/19 05:01 Carbon Dioxide 26 mmol/L (22-30) 02/26/19 05:01 Anion Gap 24 mmol/L 02/26/19 05:01 BUN 34 mg/dL (9-20) H 02/26/19 05:01 Creatinine 6.4 mg/dL (0.8-1.5) H 02/26/19 05:01 Estimated GFR 9 ml/min 02/26/19 05:01 BUN/Creatinine Ratio 5 % 02/26/19 05:01 Glucose 221 mg/dL (75-100) H 02/26/19 05:01 POC Glucose 169 (70-105) H 02/26/19 11:28 Calcium 9.5 mg/dL (8.4-10.2) 02/26/19 05:01 Troponin T 0.079 ng/mL (0.00-0.029) H 02/25/19 06:46 NT-Pro-B Natriuret Pep 00286 pg/mL (0-900) H 02/25/19 06:46 Triglycerides 172 mg/dL (2-149) H 02/25/19 06:46 Cholesterol 171 mg/dL (50-199) 02/25/19 06:46 LDL Cholesterol Direct 108 mg/dL (50-130) 02/25/19 06:46 HDL Cholesterol 41 mg/dL (40-59) 02/25/19 06:46 Cholesterol/HDL Ratio 4.17 % 02/25/19 06:46 Urine Color Yellow (Yellow) 02/25/19 Unknown Urine Turbidity Slightly-cloudy (Clear) 02/25/19 Unknown Urine pH 8.0 (5.0-7.0) H 02/25/19 Unknown Ur Specific Burna 1.012 (1.003-1.030) 02/25/19 Unknown Urine Protein 100 mg/dl mg/dL (Negative) 02/25/19 Unknown Urine Glucose (UA) >=500 mg/dL (Negative) 02/25/19 Unknown Urine Ketones Neg mg/dL (Negative) 02/25/19 Unknown Urine Blood Lg (Negative) 02/25/19 Unknown Urine Nitrite Neg (Negative) 02/25/19 Unknown Urine Bilirubin Neg (Negative) 02/25/19 Unknown Urine Urobilinogen < 2.0 mg/dL (<2.0) 02/25/19 Unknown Ur Leukocyte Esterase Neg (Negative) 02/25/19 Unknown Urine WBC (Auto) 27.0 /HPF (0.0-6.0) H 02/25/19 Unknown Urine RBC (Auto) > 182.0 /HPF (0.0-6.0) 02/25/19 Unknown U Epithel Cells (Auto) 3.0 /HPF (0-13.0) 02/25/19 Unknown Hepatitis A IgM Ab Non-reactive (NonReactive) 02/25/19 12:53 Hep Bs Antigen Non-reactive (Negative) 02/25/19 12:53 Hep B Core IgM Ab Non-reactive (NonReactive) 02/25/19 12:53 Hepatitis C Antibody Non-reactive (NonReactive) 02/25/19 12:53 Active Medications - Current Medications Current Medications: Generic Name Dose Route Start Last Admin Trade Name Freq PRN Reason Stop Dose Admin Acetaminophen 650 mg 02/25/19 11:43 Tylenol PO Q4H PRN Pain MILD(1-3)/Fever >100.5/ZELAYA Dextrose 50 ml 02/26/19 13:00 D50w (25gm) Syringe IV Q30MIN PRN Hypoglycemia Protocol Sodium Chloride 100 mls @ 999 mls/hr 02/25/19 13:07 Nacl 0.9% IV LESIA PRN Hypotension Insulin Human Lispro 0 unit 02/26/19 16:30 Humalog SUB-Q ACHS EVANGELINA Protocol Ondansetron HCl 4 mg 02/25/19 11:43 Zofran IV Q8H PRN Nausea And Vomiting Oxycodone/Acetaminophen 1 tab 02/25/19 16:28 Percocet 5/325 PO Q6H PRN Pain, Moderate (4-6) Sodium Chloride 10 ml 02/25/19 22:00 02/26/19 08:59 Sodium Chloride Flush Syringe 10 Ml IV 10 ml BID EVANGELINA Administration Sodium Chloride 10 ml 02/25/19 11:43 Sodium Chloride Flush Syringe 10 Ml IV PRN PRN LINE FLUSH
[2019-02-26] MEDS ORDERED: SODIUM CHLORIDE 0.9% 1000 ML 1,000 ML ONE (14:05)
[2019-02-26] MEDS: SODIUM CHLORIDE 0.9% 1000 ML 1,000 ML IV SCH (14:10)
--- NOTE | 2019-02-26 14:50 | Anesthesia Day of Surgery ---
Anesthesia Day of Surgery - Day of Surgery Patient Examined: Yes Patient H&P Reviewed: Yes Patient is NPO: Yes
--- NOTE | 2019-02-26 14:55 | Anesthesia Consultation ---
Anesthesia Consult and Med Hx Date of service: 02/26/19 - Airway Anesthetic Teeth Evaluation: Chipped ROM Head & Neck: Adequate Mental/Hyoid Distance: Adequate Mallampati Class: Class II Intubation Access Assessment: Probably Good - Pre-Operative Health Status ASA Pre-Surgery Classification: ASA3 Proposed Anesthetic Plan: General - Pulmonary Hx Asthma: No Hx Respiratory Symptoms: Yes COPD: Yes Home Oxygen Therapy: Yes Hx Pneumonia: No Hx Sleep Apnea: No - Cardiovascular System Hx Hypertension: Yes (CHF-35% EF) Hx Coronary Artery Disease: Yes (+Cardiac clearance) Hx Percutaneous Transluminal Coronary Angioplasty (PTCA): No Hx Internal Defibrillator: No Hx Heart Murmur: Yes - Central Nervous System CVA: No Hx Psychiatric Problems: No - Endocrine Hx Renal Disease: Yes (Dialysis Tues, Th, and Sat. Last HD yesterday) Hx End Stage Renal Disease: Yes Hx Liver Disease: No Hx Non-Insulin Dependent Diabetes: Yes Hx Hypothyroidism: No Hx Hyperthyroidism: No - Hematic Hx Sickle Cell Disease: No - Other Systems Hx Cancer: Yes (Prostate)
[2019-02-26] MEDS ORDERED: ceFAZolin/STERILE WATER 2 GM/20 ML SYRINGE IV NR (16:00)
[2019-02-26] MEDS ORDERED: LIDOCAINE MPF (2%) 20 MG/1 ML VIAL 5 ML ONE (16:02)
[2019-02-26] MEDS ORDERED: fentaNYL 100 MCG/2 ML INJ ONE ×2 (16:03→17:00)
[2019-02-26] MEDS ORDERED: PROPOFOL 200 MG/20 ML VIAL IV ONE (16:03)
--- NOTE | 2019-02-26 16:52 | Post Operative Note ---
Date of procedure: 02/26/19 Pre-op diagnosis: hematuria Post-op diagnosis: same (urethral stricture) Procedure: cysto, urethral dilation, woo, rpg Anesthesia: GETA Surgeon: KAIT GLASER Estimated blood loss: none Condition: stable Disposition: PACU (HOME WITH WOO TO BIG BAG & LEG BAG WHEN STABLE)
[2019-02-26] MEDS ORDERED: fentaNYL 100 MCG/2 ML INJ IV PRN (17:08)
--- NOTE | 2019-02-26 18:03 | Fluoroscopy Report ---
INTRAOPERATIVE FLUOROSCOPY: BLADDER INDICATION / CLINICAL INFORMATION: HEMATURIA, URETHRAL STRICTURE. TECHNIQUE: Intraoperative spot images were obtained during the procedure. FINDINGS: Images show performance of cystoscopy, bilateral retrograde ureterography, and a Ríos catheter in th e bladder at completion of the procedure. No abnormal dilatation of the ureters. Fluoroscopy Time: 0.2 minutes. Fluoroscopy Images: 10. Signer Name: Daniel Mina MD Signed: 02/26/2019 5:58 PM Workstation Name: [id number]
--- NOTE | 2019-02-26 18:26 | Operative Report ---
PREOPERATIVE DIAGNOSIS: Gross hematuria. POSTOPERATIVE DIAGNOSES: Gross hematuria, urethral stricture. PROCEDURE: Cystoscopy, urethral dilatation, and bilateral retrograde pyelograms. SURGEON: Tobi Merritt MD. ANESTHESIA: General. ESTIMATED BLOOD LOSS: Minimal. FLUIDS: Crystalloid. COMPLICATIONS: No complications. INDICATIONS: This is a 68-year-old gentleman actually followed by Dr. Mccallum in my office with a history of a prostate cancer, status post the radiation therapy by Dr. Vasile Samuel. Most recent PSA was 0.6, 01/01/2019. He presented to the Emergency Room with hematuria. He also has some shortness of breath and he is on home O2 and end-stage renal disease as well. CT of the abdomen and pelvis revealed small kidneys and no hydronephrosis. He presents now for a surgical intervention. DESCRIPTION OF PROCEDURE: The patient was taken to the operative suite and placed in a supine position. After adequate general anesthesia, placed in a dorsal lithotomy position and prepped and draped in a sterile fashion. Urethroscopy was performed and obvious bulbar stricture. A 0.035 Glidewire was placed. Urethral dilatation with the blue sounds to 20-[place] was performed. Cystoscopy was advanced. The scope was advanced over a wire. Prostate was minimally obstructing. In the bladder, no tumors or stones were noted. Both ureteral orifices were in normal position. Bilateral retrograde pyelograms were obtained with an 8-[place] Theriot catheter and 8 mL of contrast. No filling defects or obstruction. A 16-[place] circle tip catheter was advanced over the wire. A rectal exam was benign. Tolerated the procedure well and was extubated and taken to the recovery room in a stable condition. I recommend he go home with the Ríos catheter and we removed it in the office. JOB# [id number] [facility]/NT[facility]
--- NOTE | 2019-02-26 19:44 | Post Anesthesia Evaluation ---
- Post Anesthesia Evaluation Patient Participated: Yes Airway Patent: Yes Stable Respiratory Function: Yes Nausea/Vomiting: No Temp > 96.8F: Yes Pain Manageable: Yes Adequeate Hydration: Yes Anesthesia Complications: No
[2019-02-26] MEDS: INSULIN LISPRO 100 UNIT/ML SUB-Q SCH (21:13)
[2019-02-27] MEDS ORDERED: oxyCODONE /ACETAMINOPHEN 5-325MG TAB PO PRN (01:00)
[2019-02-27] MEDS: SODIUM CHLORIDE 0.9% 1000 ML 1,000 ML IV SCH (02:05)
[2019-02-27] MEDS: INSULIN LISPRO 100 UNIT/ML SUB-Q SCH ×3 (08:30→17:08)
--- NOTE | 2019-02-27 09:38 | Discharge Summary ---
Providers - Providers Date of Admission: 02/26/19 10:25 Attending physician: RBAD DANIELLE MD 02/25/19 08:57 Consult to Physician [CONS] Stat Comment: called office/ burt Consulting Provider: KIRSTEN ESTRADA Physician Instructions: Reason For Exam: dialysis 02/25/19 11:43 Consult to Physician [CONS] Routine Comment: Consulting Provider: RAFAEL VASQUES Physician Instructions: Reason For Exam: hematuria Consult to Physician [CONS] Routine Comment: called office/ burt Consulting Provider: RANDI FRYE Physician Instructions: Reason For Exam: sob, chf 02/26/19 12:11 Physical Therapy Evaluation and Treat [CONS] Routine Comment: Reason For Exam: Weakness 02/26/19 13:00 Consult to Dietitian/Nutrition [CONS] Routine Physician Instructions: Reason For Exam: Reason for Consult: Diet education Primary care physician: [employer] Hospitalization Condition: Stable Hospital course: 68-year-old man who presents with shortness of breath and hematuria Chest x-ray; no acute findings CT abdomen and pelvis; no acute abnormalities, however there is bilateral nonobstructive nephrolithiasis, and a 2.1 cm right adrenal adenoma. Hematuria Urology consult, sp cysto and urethral dilatation, dc home with woo Patient has history of prostate cancer status post radiation, he is due for follow-up in 5 months. Shortness of breath/pulmonary edema Given worsening dyspnea on exertion and orthopnea. Cardiology consultappreciated CHF, acute on chronic systolic and diastolic, EF 35% Continue dialysis for fluid removal, oliguric at baseline. Echo was repeated and shows that EF is unchanged. Cardiology input appreciated End-stage renal disease/hyperkalemia Dialysis per nephrology Chronic hypoxic respiratory failure Using his baseline 2 L, DVT prophylaxis SCDs in light of hematuria Uncontrolled type 2 diabetes A1c 8. Started on pre-meal insulin sliding scale upon discharge. Preventative health counseling performed for 17 minutes Disposition: DC- TO HOME OR SELFCARE Time spent for discharge: 35 minutes Core Measure Documentation - Palliative Care Palliative Care/ Comfort Measures: Not Applicable - Core Measures Any of the following diagnoses?: none Exam - Constitutional Vitals: Temp Pulse Resp BP Pulse Ox 97.4 F L 77 18 174/88 98 02/27/19 07:23 02/27/19 07:23 02/27/19 07:23 02/27/19 07:23 02/27/19 07:23 General appearance: Present: no acute distress, well-nourished - EENT Eyes: Present: PERRL ENT: hearing intact, clear oral mucosa - Neck Neck: Present: supple, normal ROM - Respiratory Respiratory effort: normal Respiratory: bilateral: CTA - Cardiovascular Heart Sounds: Present: S1 & S2. Absent: rub, click - Extremities Extremities: pulses symmetrical, No edema Peripheral Pulses: within normal limits - Abdominal General gastrointestinal: Present: soft, non-tender, non-distended, normal bowel sounds Male genitourinary: Present: normal - Integumentary Integumentary: Present: clear, warm, dry - Musculoskeletal Musculoskeletal: gait normal, strength equal bilaterally - Psychiatric Psychiatric: appropriate mood/affect, intact judgment & insight - Neurologic Neurologic: CNII-XII intact, moves all extremities Plan Follow up with: PRIMARY CARE, [Primary Care Provider] - 3-5 Days Prescriptions: oxyCODONE /ACETAMINOPHEN [Percocet 5/325 mg] 1 tab PO Q6HR PRN #14 PRN Reason: Pain
--- NOTE | 2019-02-27 10:28 | Progress Note ---
<MARIANGEL MURPHY - Last Filed: 02/27/19 10:26> Assessment and Plan Volume overload Flank pain, right abdominal CT scan: bilateral nonobstructive nephrolithiasis Hx of Ischemic CMP previously decline ICD implant for primary prevention EF 35-40% by echo this admission Hx of CAD ESRD on dialysis Hypertension Hx of prostate cancer s/p radiation therapy Recommendations: Dialysis for fluid removal. Medical therapy for ischemic cardiomyopathy and coronary artery disease. Stable cardiac sawyer. Follow up with [facility] as previously scheduled. We will sign off. Subjective Date of service: 02/27/19 Interval history: Patient has no cardiac complaints. Objective Vital Signs Temp Pulse Pulse Resp BP Pulse Ox 02/27/19 07:23 97.4 F L 77 18 174/88 98 02/27/19 02:14 97.7 F 78 20 128/83 96 02/26/19 22:00 79 18 96 02/26/19 19:19 98.7 F 79 18 133/68 96 02/26/19 18:07 97.3 F L 80 169/89 94 02/26/19 17:45 98.5 F 80 14 146/92 95 02/26/19 17:30 79 16 181/99 96 02/26/19 17:15 77 16 185/101 100 02/26/19 17:07 76 195/108 02/26/19 17:05 80 16 194/104 100 02/26/19 17:00 79 16 188/107 100 02/26/19 16:54 98 F 80 16 173/110 100 02/26/19 13:55 98.9 F 77 16 146/81 95 02/26/19 13:35 98.9 F 77 16 146/81 95 02/26/19 13:06 97.8 F 72 20 154/84 93 - Physical Examination General: No Apparent Distress HEENT: Positive: PERRL Neck: Positive: trachea midline Cardiac: Positive: Reg Rate and Rhythm Lungs: Positive: Decreased Breath Sounds Neuro: Positive: Grossly Intact Extremities: Absent: edema <MICHAEL GARCIA - Last Filed: 02/27/19 10:46> Assessment and Plan I've seen and evaluated the patient and agree with the assessment and plan. Patient is presenting with volume overload with a history of ischemic cardiomyopathy with ejection fraction 35-40%. Patient has previously declined ICD placement. Patient has end-stage renal disease on hemodialysis as well. Patient has received dialysis for volume removal. Continue goal-directed medical therapy for treatment of cardiomyopathy and coronary artery disease. Patient is currently hemodynamically stable. Will sign off. Please reconsult as needed. Objective Vital Signs Temp Pulse Pulse Resp BP Pulse Ox 02/27/19 09:40 71 154/78 02/27/19 09:30 97.5 F L 71 16 154/78 02/27/19 07:23 97.4 F L 77 18 174/88 98 02/27/19 02:14 97.7 F 78 20 128/83 96 02/26/19 22:00 79 18 96 02/26/19 19:19 98.7 F 79 18 133/68 96 02/26/19 18:07 97.3 F L 80 169/89 94 02/26/19 17:45 98.5 F 80 14 146/92 95 02/26/19 17:30 79 16 181/99 96 02/26/19 17:15 77 16 185/101 100 02/26/19 17:07 76 195/108 02/26/19 17:05 80 16 194/104 100 02/26/19 17:00 79 16 188/107 100 02/26/19 16:54 98 F 80 16 173/110 100 02/26/19 13:55 98.9 F 77 16 146/81 95 02/26/19 13:35 98.9 F 77 16 146/81 95 02/26/19 13:06 97.8 F 72 20 154/84 93
--- NOTE | 2019-02-27 11:55 | Progress Note ---
Assessment and Plan This is a 68 year old man with ESRD who presents with hematuria, shortness of breath # ESRD: HD on admission for hyperkalemia and volume; continue HD // or prn based on labs/volume. Seen on HD today, no issues noted - daily labs - renal diet - avoid nephrotoxins - renally dose meds # Anemia: hemoglobin at goal for ESRD, no CATHIE indicated # HTN/Volume: BP at goal, UF removal with HD as tolerated # Hematuria: noted to have stones; consider [facility] as outpatient. Appreciate urology. # Secondary Hyperparathyroidism: continue home binders if able Subjective Date of service: 02/27/19 Interval history: Had urological procedure yesterday. No acute issues noted. Seen on HD, tolerating well, denies cramping, dizziness. No dyspnea, no chest pain. Objective - Exam Narrative Exam: General appearance: well-developed, well-nourished, appears stated age EENT: ATNC, PERRL, mucous membranes moist Neck: Present: neck supple, trachea midline Respiratory: Clear to Ascultation, Decreased Breath Sounds Heart: normal heart rate, S1S2 Gastrointestinal: Present: normal, normoactive bowel sounds. Absent: tenderness Integumentary: no rash Neurologic: no focal deficit, no asterixis, CN 3-12 intact Psychiatric: mood/affect appropriate - Vital Signs Vital signs: Vital Signs - 12hr 02/27/19 02/27/19 02/27/19 02:14 07:23 09:30 Temperature 97.7 F 97.4 F L 97.5 F L Pulse Rate 78 77 71 Respiratory 20 18 16 Rate Blood Pressure 128/83 174/88 154/78 O2 Sat by Pulse 96 98 Oximetry 02/27/19 02/27/19 02/27/19 09:40 09:45 10:00 Temperature Pulse Rate 71 73 70 Respiratory 20 Rate Blood Pressure 154/78 159/85 149/81 O2 Sat by Pulse 95 Oximetry 02/27/19 02/27/19 02/27/19 10:15 10:30 10:45 Temperature Pulse Rate 79 67 68 Respiratory Rate Blood Pressure 147/83 141/81 101/62 O2 Sat by Pulse Oximetry 02/27/19 02/27/19 11:00 11:15 Temperature Pulse Rate 70 69 Respiratory Rate Blood Pressure 108/97 114/71 O2 Sat by Pulse Oximetry Seen on HD, Qb 400ml/min via AVF, UF goal 2.5L - Lab 02/26/19 05:01 02/26/19 05:01 Most recent lab results Calcium 9.5 mg/dL (8.4-10.2) 02/26/19 05:01 Medications & Allergies - Medications Allergies/Adverse Reactions: Allergies No Known Allergies Allergy (Verified 10/25/16 20:18) Home Medications: Home Medications Medication Instructions Recorded Confirmed Last Taken Type traMADoL [Ultram 50 MG tab] 50 mg PO Q6HR PRN #12 tablet 02/13/19 02/26/19 02/24/19 21:00 Rx Insulin Aspart (Niacinamide) 0 unit SQ AC #1 vial 02/27/19 Unknown Rx [Fiasp 100 Unit/ml Vial] oxyCODONE /ACETAMINOPHEN [Percocet 1 tab PO Q6HR PRN #14 02/27/19 Unknown Rx 5/325 mg] Active Medications: Generic Name Dose Route Start Last Admin Trade Name Freq PRN Reason Stop Dose Admin Acetaminophen 650 mg 02/25/19 11:43 Tylenol PO Q4H PRN Pain MILD(1-3)/Fever >100.5/ZELAYA Dextrose 50 ml 02/26/19 13:00 D50w (25gm) Syringe IV Q30MIN PRN Hypoglycemia Protocol Sodium Chloride 100 mls @ 999 mls/hr 02/25/19 13:07 Nacl 0.9% IV LESIA PRN Hypotension Sodium Chloride 1,000 mls @ 42 mls/hr 02/26/19 14:30 02/27/19 02:05 Nacl 0.9% 1000 Ml IV 42 mls/hr DIRECT EVANGELINA Administration Insulin Human Lispro 0 unit 02/26/19 16:30 02/27/19 08:30 Humalog SUB-Q 1 unit ACHS EVANGELINA Administration Protocol Ondansetron HCl 4 mg 02/25/19 11:43 Zofran IV Q8H PRN Nausea And Vomiting Oxycodone/Acetaminophen 1 tab 02/27/19 01:00 Percocet 5/325 PO Q4H PRN Pain, Moderate (4-6) Sodium Chloride 10 ml 02/25/19 22:00 02/26/19 21:14 Sodium Chloride Flush Syringe 10 Ml IV 10 ml BID EVANGELINA Administration Sodium Chloride 10 ml 02/25/19 11:43 Sodium Chloride Flush Syringe 10 Ml IV PRN PRN LINE FLUSH
[2019-02-27 13:48] VITALS: BP 120/65
== END 2019-02-27 19:00 | disposition home or self-care (01) | DRG 291 ==
LOC: ED 05:33 → 4A 08:58 → 2B-ACE 14:58 → OBSVTOIN 02-26 10:25
PROVIDERS: ADMIT Internal Medicine; ATTEND Internal Medicine
PROC: 5A1D70Z Performance of Urinary Filtration, Intermittent, Less than 6 Hours Per Day (ICD-10-PCS; principal; 2019-02-25)
PROC: 0T7D8ZZ Dilation of Urethra, Via Natural or Artificial Opening Endoscopic (ICD-10-PCS; 2019-02-26)
PROC: BT141ZZ Fluoroscopy of Kidneys, Ureters and Bladder using Low Osmolar Contrast (ICD-10-PCS; 2019-02-26)
PROC: 5A1D70Z Performance of Urinary Filtration, Intermittent, Less than 6 Hours Per Day (ICD-10-PCS; 2019-02-27)
DX: I13.2 Hypertensive heart and chronic kidney disease with heart failure and with stage 5 chronic kidney disease, or end stage renal disease (principal); N18.6 End stage renal disease; I50.23 Acute on chronic systolic (congestive) heart failure; J96.11 Chronic respiratory failure with hypoxia; N25.81 Secondary hyperparathyroidism of renal origin; E87.5 Hyperkalemia; E11.319 Type 2 diabetes mellitus with unspecified diabetic retinopathy without macular edema; E11.22 Type 2 diabetes mellitus with diabetic chronic kidney disease; I25.10 Atherosclerotic heart disease of native coronary artery without angina pectoris; I25.5 Ischemic cardiomyopathy; Z99.2 Dependence on renal dialysis; Z85.46 Personal history of malignant neoplasm of prostate; Z79.4 Long term (current) use of insulin; Z95.5 Presence of coronary angioplasty implant and graft; R31.0 Gross hematuria; N35.916 Unspecified urethral stricture, male, overlapping sites
CPT/HCPCS: 36415; 71045; 74176; 74420; 74485; 80048; 80061; 80074; 81001; 82962; 83036; 83880; 84484; 85025; 85610; 85730; 87086; 93005; 93010; 93306; G0378; C1758; C1769; J0690; J0696; J1815; J2270; J2704; J3010; J7030; Q9967

== ENCOUNTER 2019-03-03 09:40 | Emergency (ER) | payer MEDICARE ==
--- NOTE | 2019-03-03 10:15 | Emergency Department Report ---
ED CPR HPI - General Stated Complaint: CARDIAC ARREST Time Seen by Provider: 03/03/19 10:03 - History of Present Illness Initial Comments: Patient is 68 years old male with history of end-stage renal disease on hemodialysis, congestive heart failure and prostate cancer. Patient brought to the emergency room via EMS from home in full cardiac arrest, CPR in progress. EMS stated that upon arrival to patient home patient was laying on the floor with no spontaneous breathing and asystole on the nurse monitoring. ACLS protocol immediately initiated by EMS and patient was intubated with a Bi airway and ACLS protocol continued. Patient received epinephrine 1 mg 4 times. Blood glucose was 126. Patient had one episode of defibrillation for which patient received 300 J and patient rhythm changed to PEA. Upon arrival to the ER, patient is still pulseless with Bi airway intubation good breath umbo side. Assuming hyperkalemia patient immediately given calcium chloride and high-quality CPR continued. Patient retained a weak pulse but he lost it very quickly. After approximately 55 minutes of resuscitation patient remained in asystole. Patient pronounced at 9:55 AM. For further information please refer to code sheets. Complaint: found unresponsive Place: home Bystander CPR Performed: No AED Applied by Bystander/Ordering Machine Operator: No Shock Advised: Yes Number of Shocks Delivered: 1 Initial Findings in the Field: unresponsive ROSC in the Field: No Associated Injuries: No Treatments Prior to Arrival: other airway device (bi airway), chest compressions, epinephrine mgs # (4) - Related Data Previous Rx's Medication Instructions Recorded Last Taken Type traMADoL [Ultram 50 MG tab] 50 mg PO Q6HR PRN #12 tablet 02/13/19 02/24/19 21:00 Rx Ciprofloxacin HCl [Ciprofloxacin 500 mg PO Q12HR #14 tab 02/27/19 Unknown Rx TAB] Ciprofloxacin [Ciprofloxacin ORAL 500 mg PO Q12H #14 ml 02/27/19 Unknown Rx LIQ] HYDROcodone/APAP 7.5-325 [Partlow 1 each PO Q8HR PRN #15 tablet 02/27/19 Unknown Rx 7.5/325] Insulin Aspart (Niacinamide) 0 unit SQ AC #1 vial 02/27/19 Unknown Rx [Fiasp 100 Unit/ml Vial] oxyCODONE /ACETAMINOPHEN [Percocet 1 tab PO Q6HR PRN #14 02/27/19 Unknown Rx 5/325 mg] Allergies Allergy/AdvReac Type Severity Reaction Status Date / Time No Known Allergies Allergy Verified 10/25/16 20:18 ED Review of Systems ROS: Stated complaint: CARDIAC ARREST Other details as noted in HPI Comment: Unobtainable due to pts medical conditions ED Past Medical Hx - Past Medical History Hx Hypertension: Yes (CHF-35% EF) Hx Congestive Heart Failure: Yes Hx Diabetes: Yes Hx Pulmonary Embolism: No Hx Liver Disease: No Hx Renal Disease: Yes (Dialysis Tues, Th, and Sat. Last HD yesterday) Hx Sickle Cell Disease: No Hx Arthritis: No Hx Asthma: No Hx COPD: Yes Hx Tuberculosis: No Hx HIV: No Additional medical history: Diabetic Retinopathy, AV fistula LUE - Surgical History Hx Coronary Stent: Yes (thrice) Hx Open Heart Surgery: No Hx Internal Defibrillator: No - Social History Smoking Status: Former Smoker - Medications Home Medications: Home Medications Medication Instructions Recorded Confirmed Last Taken Type traMADoL [Ultram 50 MG tab] 50 mg PO Q6HR PRN #12 tablet 02/13/19 02/26/19 02/24/19 21:00 Rx Ciprofloxacin HCl [Ciprofloxacin 500 mg PO Q12HR #14 tab 02/27/19 Unknown Rx TAB] Ciprofloxacin [Ciprofloxacin ORAL 500 mg PO Q12H #14 ml 02/27/19 Unknown Rx LIQ] HYDROcodone/APAP 7.5-325 [Partlow 1 each PO Q8HR PRN #15 tablet 02/27/19 Unknown Rx 7.5/325] Insulin Aspart (Niacinamide) 0 unit SQ AC #1 vial 02/27/19 Unknown Rx [Fiasp 100 Unit/ml Vial] oxyCODONE /ACETAMINOPHEN [Percocet 1 tab PO Q6HR PRN #14 02/27/19 Unknown Rx 5/325 mg] ED Physical Exam - General General appearance: other (CPR in progress) - Head Head exam: Present: atraumatic, normocephalic, normal inspection - Eye Pupils: Present: other ( 4 mm, dilated and fixed) - Neck Neck exam: Present: normal inspection - Respiratory Respiratory exam: Present: other (no spontaneous respiration.) - Cardiovascular Cardiovascular Exam: Present: other (no heart tone) - GI/Abdominal GI/Abdominal exam: Present: soft. Absent: distended - Neurological Exam Neurological exam: Present: other (CPR in progress) - Skin Skin exam: Present: warm ED Medical Decision Making - Medical Decision Making Patient is 68 years old male with history of end-stage renal disease on hemodialysis, congestive heart failure and prostate cancer. Patient brought to the emergency room via EMS from home in full cardiac arrest, CPR in progress. EMS stated that upon arrival to patient home patient was laying on the floor with no spontaneous breathing and asystole on the nurse monitoring. ACLS protocol immediately initiated by EMS and patient was intubated with a Bi airway and ACLS protocol continued. Patient received epinephrine 1 mg 4 times. Blood glucose was 126. Patient had one episode of defibrillation for which patient received 300 J and patient rhythm changed to PEA. Upon arrival to the ER, patient is still pulseless with Bi airway intubation good breath umbo side. Assuming hyperkalemia patient immediately given calcium chloride and high-quality CPR continued. Patient retained a weak pulse but he lost it very quickly. After approximately 55 minutes of resuscitation patient remained in asystole. Patient pronounced at 9:55 AM. For further information please refer to code sheets. Patient informed. Critical Care Time: Yes Critical care time in (mins) excluding proc time.: 30 Critical care attestation.: If time is entered above; I have spent that time in minutes in the direct care of this critically ill patient, excluding procedure time. ED Disposition Clinical Impression: Cardiopulmonary arrest Disposition: DC-20 Is pt being admited?: No Condition: Stable
== END 2019-03-03 15:51 ==
LOC: ED 09:40
DX: I46.9 Cardiac arrest, cause unspecified (principal); I13.2 Hypertensive heart and chronic kidney disease with heart failure and with stage 5 chronic kidney disease, or end stage renal disease; E11.22 Type 2 diabetes mellitus with diabetic chronic kidney disease; E11.319 Type 2 diabetes mellitus with unspecified diabetic retinopathy without macular edema; N18.6 End stage renal disease; I50.9 Heart failure, unspecified; J44.9 Chronic obstructive pulmonary disease, unspecified; Z99.2 Dependence on renal dialysis; Z79.4 Long term (current) use of insulin; Z98.890 Other specified postprocedural states; Z87.891 Personal history of nicotine dependence; Z79.899 Other long term (current) drug therapy
CPT/HCPCS: 82962; 92950; 93005; 93010; 99291